=== PATIENT | female | born 1945 | race Caucasian/White ===

== ENCOUNTER 2020-08-09 10:05 | Emergency (ER) | payer MEDICARE, SELFPAY ==
[2020-08-09 10:18] VITALS: BP 143/64; PULSE 90; RESP 20; TEMP 36.6
--- NOTE | 2020-08-09 10:31 | ED.URI ---
HPI - URI/Sore Throat General Chief Complaint: Upper Respiratory Infection Stated Complaint: sore throat Time Seen by Provider: 08/09/20 10:15 Source: patient and RN notes reviewed Mode of arrival: ambulatory Limitations: no limitations History of Present Illness HPI Narrative: Patient presents today with a 1 month history of a sore throat. She also complains of some postnasal drip and nasal congestion as well as swelling to her throat. This morning she noted a painful spot on the right side of her tongue as well. States she is short of breath at baseline, but no worse than normal. Currently rates her sore throat 01/27 and has been taking ibuprofen without relief. She was seen by her PCP, Dr. Mcmanus, 10 days ago and was prescribed a course of azithromycin, which she took the full course of. States it did help with some of the soreness in her throat, but not the swelling. States she attempted to phone for follow up appointment, but was unable to get ahold of anyone, so she came to [facility] today for further evaluation. Related Data Home Medications Medication Instructions Recorded Confirmed lancets 17 gauge #100 each 08/15/19 07/30/20 latanoprost 0.005 % eye drops 1 drop EACH EYE QPM 08/15/19 08/09/20 metoclopramide HCl 10 mg tablet 10 mg PO Q6H PRN 08/15/19 08/09/20 timolol 0.25 % eye drops 1 drop EACH EYE Q12H 08/15/19 08/09/20 Allergies Allergy/AdvReac Type Severity Reaction Status Date / Time amoxicillin Allergy Unknown Rash Verified 07/30/20 14:21 minocycline Allergy Unknown unknown Verified 07/30/20 14:21 Review of Systems Review of Systems: Narrative: CONSTITUTIONAL: Denies body aches, fever, chills, or sweats. EYES: Denies visual changes, redness, or discharge. ENT: Denies rhinorrhea, or otalgia. + Sore throat and swelling, postnasal drip, nasal congestion, tongue sore CARDIOVASCULAR: Denies chest pain, palpitations, or edema. RESPIRATORY: Denies cough or dyspnea. GASTROINTESTINAL: Denies abdominal pain, nausea, vomiting, or diarrhea. GENITOURINARY: Denies dysuria or hematuria. SKIN: Denies rash, itching, or wounds. MUSCULOSKELETAL: Denies back pain, joint pain, or myalgia. NEUROLOGIC: Denies headache, numbness, tingling, or weakness. PSYCH: Denies depression or anxiety. [facility] Family History Family History (Updated 01/02/19 @ 15:17 by DOCTOR UNKNOWN) Other Depression Social History Social History Smoking status: Never smoker Second hand tobacco smoke exposure: No Alcohol intake: never Gender identity (if verbalized by the patient): Female Comments At time of signature, I have reviewed and agree with nursing past medical, surgical, social and family history unless otherwise noted. Please see nursing chart for further information. There is no relevant family history pertinent to the presenting complaint Exam Narrative: Exam Narrative: GENERAL: Well-appearing, well-nourished, and in no acute distress. HEAD: Normocephalic, atraumatic. EYES: EOMI. No redness or drainage. Conjunctivae normal. ENT: Mucous membranes pink and moist. Nares clear with rhinorrhea. TMs normal bilaterally. Throat with cobblestoning. Small amount of postnasal drainage. No edema noted. Tonsils normal. No exudate noted. 3 mm canker sore to the right lateral tongue. Uvula midline. NECK: Normal AROM. Supple. No lymphadenopathy. CHEST: No respiratory distress. Clear to auscultation. HEART: Regular rate and rhythm. No murmur appreciated. Normal peripheral pulses. EXTREMITIES: Normal range of motion. No edema. SKIN: Warm, dry, no rash. Capillary refill normal. Normal skin turgor. NEURO: No focal deficits. Alert and oriented x3. Gait steady. PSYCH: Normal affect. No signs of depression or anxiety. Course Vital Signs Vital signs: Vital Signs Temperature 97.9 F 08/09/20 10:18 Pulse Rate 90 08/09/20 10:18 Respiratory Rate 08/09/20 10:18 Blood Pressure 143/64 H 08/09/20 10:18
[2020-08-09 10:37] VITALS: BP 143/64; PULSE 90; RESP 20; TEMP 36.6
== END 2020-08-09 10:39 | disposition home or self-care (01) ==
PROVIDERS: Emergency Provider Nurse Practitioner; PCP Internal Medicine
DX: R09.82 Postnasal drip (principal); K12.0 Recurrent oral aphthae; E78.00 Pure hypercholesterolemia, unspecified; M19.90 Unspecified osteoarthritis, unspecified site; E11.43 Type 2 diabetes mellitus with diabetic autonomic (poly)neuropathy; K31.84 Gastroparesis; H35.30 Unspecified macular degeneration
CPT/HCPCS: 99211; G0463

== ENCOUNTER 2023-03-25 08:42 | Inpatient (IN) | payer MEDICARE, SELFPAY ==
[2023-03-25] VITALS (18 sets, daily range): BP systolic 111–162; BP diastolic 50–74; PULSE 1–104; RESP 16–27; TEMP 36.6–36.8; O2SAT 82–99; BMI 28.5
--- NOTE | ~2023-03-25 | XR_ITS ---
Left ankle Technique: AP, oblique, and lateral views were obtained. Clinical History: Pain Findings: No acute fracture or dislocation is seen. Osseous alignment is anatomic. Ankle mortise and other visualized joint spaces are preserved. Plantar calcaneal spur present. There is mild lateral so ft tissue swelling. Impression: No fracture or dislocation. Mild lateral soft tissue swelling. Reviewed, dictated and finalized at location . Impression: No fracture or dislocation. Mild lateral soft tissue swelling.
--- NOTE | ~2023-03-25 | MR_ITS ---
EXAMINATION: MR thoracic spine wo con DATE: 03/26/2023 11:51 INDICATION: T12 compression fracture. TECHNIQUE: Magnetic resonance imaging (MRI) of the thoracic spine was performed without intravenous c ontrast. COMPARISON: CT 03/25/2023 FINDINGS: There is 5 degrees levocurvature of upper thoracic spine. There is 2 mm anterolisthesis of T1 on T2 and T2 on T3. There are Schmorl's nodes at multiple levels. There is a compression fracture of T12 with less than 1/5 loss of height with edema-like marrow signal intensity. There is moderately decreased disc height at T11-T12. At T11-T12, the disc is bulging and has an annular fissure. There is multilevel facet joint osteoarthritis, severe at many levels. On the right, there is mild neural f oraminal stenosis at T1-T2, T2-T3, T3-T4, T4-T5, T5-T6, and T11-T12. On the left, there is mild neura l foraminal stenosis at T1-T2, T2-T3, T4-T5, T6-T7, T8-T9, and T11-T12. There is mild central canal s tenosis at T11-T12. The distal spinal cord signal intensity is normal. The conus medullaris is at T12 . IMPRESSION: 1. Acute/subacute T12 compression fracture. 2. Mild thoracic spondylosis. Reviewed, dictated and finalized at location A.
--- NOTE | ~2023-03-25 | CT_ITS ---
Noncontrast CT scan of the cervical spine Technique: Multiple contiguous axial [address] images of the cervical spine were obtained and rec onstructed in 2D sagittal and coronal planes on the acquisition scanner. Dose reduction technique was used on this scan by utilizing automated exposure control, adjustment of the mA and/or kV according to patient size. The dose-length product (DLP) was 508.95 mGy-cm. Clinical History: Pain Findings: No fractures or dislocations. There is mild straightening of normal cervical. There is sev ere degenerative disc narrowing with uncovertebral degenerative change at C4-C5, C5-C6, and C6-C7. At C2-C3, there is mild disc osteophyte complex and there is right facet arthropathy. Possible minima l right neural foraminal narrowing. No definite central canal stenosis, cord compression, or left jan ral foraminal narrowing. At C3-C4, there is left neural foraminal narrowing related to severe left facet arthropathy. Right ne ural foramen preserved. No definite canal stenosis or cord compression. At C4-C5, there is disc osteophyte complex with probable mild canal stenosis and possible mild cord c ompression. There is bilateral neural foraminal narrowing with bilateral facet arthropathy, right wor se than left. At C5-C6, there is disc osteophyte complex with probable mild to moderate canal stenosis and probable element of cord compression. There is advanced bilateral neural foraminal narrowing. At C6-C7, there is disc osteophyte complex with probable mild canal stenosis and possible mild cord c ompression. There is mild bilateral neural foraminal narrowing, left worse than right. No prevertebral soft tissue swelling. There is mild patchy groundglass opacity in the lungs. Impression: No fracture or subluxation of the cervical spine. Severe degenerative spondylosis of the cervical spine, as detailed above. Mild patchy pulmonary groundglass opacity. Correlate for mild pulmonary edema or bronchiolitis. Reviewed, dictated and finalized at [facility]. Impression: No fracture or subluxation of the cervical spine. Severe degenerative spondylosis of the cervical spine, as detailed above. Mild patchy pulmonary groundglass opacity. Correlate for mild pulmonary edema o r bronchiolitis.
--- NOTE | ~2023-03-25 | MR_ITS ---
EXAMINATION: MR lumbar spine wo con DATE: 03/26/2023 11:51 INDICATION: Back pain. Fall. T12 compression fracture. TECHNIQUE: Magnetic resonance imaging (MRI) of the lumbar spine was performed without intravenous con trast. Sequences included sagittal T2-weighted FSE, sagittal T2-weighted FS FSE, sagittal T1-weighted FSE, and axial T2-weighted FSE. COMPARISON: CT 03/25/2023 FINDINGS: There is 10 degrees levoscoliosis of lumbar spine. There is 5 mm retrolisthesis of L1 on L2 . There is a compression fracture of T12 with less than 1/5 loss of height with bone marrow edema. Th ere is severely decreased disc height at L1-L2, mildly decreased disc height at L2-L3, severely decre ased disc height at L3-L4, moderately decreased disc height at L4-L5, and mildly decreased disc heigh t at L5-S1. The distal spinal cord signal intensity is normal. The conus medullaris is at T12. The fo llowing disc levels are specifically discussed: L1-L2: The disc is bulging and has an annular fissure. There is severe right and moderate left facet joint osteoarthritis. There is moderate bilateral neural foraminal stenosis. There is mild central ca nal stenosis. L2-L3: The disc is bulging and has an annular fissure. There is severe bilateral facet joint osteoart hritis. There is moderate right and mild left neural foraminal stenosis. There is mild central canal stenosis. L3-L4: The disc is bulging and has an annular fissure. There is severe bilateral facet joint osteoart hritis. There is mild right and moderate left neural foraminal stenosis. There is mild central canal stenosis. L4-L5: The disc is bulging and has an annular fissure. There is moderate right and severe left facet joint osteoarthritis. There is mild bilateral neural foraminal stenosis. There is no central canal st enosis. L5-S1: The disc is bulging and has an annular fissure. There is moderate bilateral facet joint osteoa rthritis. There is moderate right neural foraminal stenosis. There is no central canal stenosis. IMPRESSION: 1. Acute/subacute T12 compression fracture. 2. Severe lumbar spondylosis. Reviewed, dictated and finalized at location A.
--- NOTE | ~2023-03-25 | US_ITS ---
EXAMINATION: US carotid duplex BI DATE: 03/25/2023 15:57 INDICATION: Syncope. TECHNIQUE: Grayscale, color Doppler, and pulsed Doppler images of the cervical carotid arteries were obtained. The degree of vessel stenosis is placed in one of the following categories: normal, <50%, 5 0-69%, >=70% but less than near-occlusion, near-occlusion, or total occlusion. Note that percent sten osis relative to normal distal artery lumen diameter is indirectly measured from velocity measurement s as described by Evgeny, et al. Radiology 2003; [id number]. COMPARISON: None. FINDINGS: RIGHT: The right common carotid artery (CCA) peak systolic velocity (PSV) is 76 cm/s. The right internal car otid artery (ICA) PSV is 131 cm/s. The right ICA end-diastolic velocity (EDV) is 36 cm/s. The right I CA/CCA PSV ratio is 1.7. Grayscale and color Doppler images yield an estimate of <50% diameter reduct ion from plaque in the ICA. There is antegrade flow in the right vertebral artery. LEFT: The left CCA PSV is 87 cm/s. The left ICA PSV is 153 cm/s. The left ICA EDV is 26 cm/s. The left ICA/ CCA PSV ratio is 1.8. Grayscale and color Doppler images yield an estimate of <50% diameter reduction from plaque in the ICA. There is antegrade flow in the left vertebral artery. IMPRESSION: 1. <50% stenosis in the right internal carotid artery. 2. <50% stenosis in the left internal carotid artery. Reviewed, dictated and finalized at location E.
--- NOTE | ~2023-03-25 | CT_ITS ---
EXAMINATION: CT thoracic spine wo con DATE: 03/25/2023 10:29 INDICATION: Back pain post fall TECHNIQUE: Computed tomography (CT) of the thoracic spine was performed without intravenous contrast. Automated exposure control and iterative reconstruction technique were employed. The dose-length pro duct was 1452.72 mGy-cm. COMPARISON: None FINDINGS: 8 degrees upper thoracic levocurvature. Sagittal alignment is normal. Linear lucent fractur e lines along the inferior endplate of T12 consistent with likely acute compression fracture with min imal anterior wedging. Remaining vertebral body heights are normal with no additional fractures ident ified. Remaining vertebral body heights are normal. There are bridging osteophytes extending from T3 through T12 consistent with diffuse idiopathic skeletal hyperostosis (DISH). Severe disc height loss at C5-C6, C6-C7 and L1-L2. Mild disc height loss at C7-T1 and T1-T2 and moderate disc height loss at the remaining thoracic levels. Thoracic disc height loss, moderate at T2-T3 through T10-T11 and mild at the remaining thoracic levels. Severe multilevel thoracic facet osteoarthritis with upper thoracic predominance. This contributes to mild neural foraminal stenosis at multiple levels on both the left and right again with upper thoracic predominance. Mild hypertrophic change associated with the facet osteoarthritis contributing to minimal central canal stenosis at a few levels throughout the thoraci c spine. Mild central canal stenosis associated with posterior disc osteophyte complexes at C5-C6, C6 -C7, T11-T12 and L1-L2. Mosaic attenuation in the lungs most likely related to expiratory phase of im aging. Calcified right upper lobe nodule, calcified right hilar and mediastinal lymph nodes and multi ple splenic calcifications consistent with old granulomatous disease. Atherosclerotic coronary artery calcification. No pericardial or pleural effusion. A few small nonobstructing left renal stones, the largest measuring up to 3-4 mm. IMPRESSION: 1. Acute compression fracture along the inferior endplate of T12 with minimal anterior vertebral body height loss. 2. Moderate thoracic spondylosis with bridging osteophytes from T3-T11 bladder consistent with diffus e idiopathic skeletal hyperostosis (DISH). 3. Severe lower cervical and upper lumbar spondylosis. Reviewed, dictated and finalized at location A. IMPRESSION: 1. Acute compression fracture along the inferior endplate of T12 with minimal a nterior vertebral body height loss. 2. Moderate thoracic spondylosis with bridging osteophytes from T3-T11 bladder consistent with diffuse idiopathic skeletal hyperostosis (DISH). 3. Severe lower cervical and upper lumbar spondylosis.
--- NOTE | ~2023-03-25 | CT_ITS ---
EXAMINATION: CT abd pelvis lumbar w con DATE: 03/25/2023 10:36 INDICATION: Fall. Abdominal pain. TECHNIQUE: Computed tomography (CT) of the abdomen and pelvis was performed with 100 CC Omnipaque 350 intravenous contrast. Automated exposure control and iterative reconstruction technique were employe d. Exam dose: 1110.57 mGy-cm total exam DLP. COMPARISON: 01/20/2019 CT abdomen pelvis FINDINGS: Patchy groundglass density of the lower lungs which may be due to atelectasis or small airw ays disease. There is discoid atelectasis or scarring at the lung bases. Cardiomegaly. Coronary artery calcifications. No pericardial effusion. The common bile duct measures up to approximately 10 mm, likely due to cholecystectomy. No hepatic sp daniel-occupying mass lesion. Occasional splenic cysts. No splenomegaly. No pancreatic mass lesion or ca lcification or ductal dilatation. Normal morphology of the adrenal glands. Subtle pinpoint nonobstructing lower pole probable right renal calculus. Approximate 4 nonobstructing left renal calculi are suggested. No left or right ureteral calculus or hydroureteronephrosis. Status post hysterectomy. The urinary bladder is unremarkable. Normal appendix. There is a suture line at the distal sigmoid colon. There is thickening of the wall of the transverse, descending and sigmoid colon. No bowel obstruction or intraperitoneal free air. There is atherosclerotic calcification but normal caliber of the abdominal aorta. There is calcificat ion at the origins of the celiac and superior mesenteric and both renal veins. No intraperitoneal or retroperitoneal or pelvic mass lesion or adenopathy or ascites is detected. Diffuse idiopathic skeletal hyperostosis of the thoracic spine. Multilevel degenerative disc disease of the lumbar spine, severe at L1-2, with associated retrolisthesis at this level. Status post left total hip arthroplasty. Right hip osteoarthritis. Prominent sclerosis at the right and to a lesser extent left sacroiliac joints. IMPRESSION: Abnormal thickening of the wall of the transverse, descending and sigmoid colon; conside r infectious, inflammatory or ischemic colitis Suture line of distal sigmoid colon Normal appendix Bilateral nonobstructive nephrolithiasis Status post cholecystectomy Status post hysterectomy Reviewed, dictated and finalized at [facility]. Reviewed, dictated and finalized at [facility]. IMPRESSION: Abnormal thickening of the wall of the transverse, descending and sigmoid colon; consider infectious, inflammatory or ischemic colitis Suture line of distal sigmoid colon Normal appendix Bilateral nonobstructive nephrolithiasis Status post cholecystectomy Status post hysterectomy
--- NOTE | ~2023-03-25 | CT_ITS ---
EXAMINATION: CT brain wo con DATE: 03/25/2023 10:28 INDICATION: Head injury TECHNIQUE: Computed tomography (CT) of the head was performed without intravenous contrast. Sagittal and coronal reconstructions were performed. The mA was adjusted according to patient size. Iterative reconstruction technique was employed. The dose-length product was 605.33 mGy-cm. COMPARISON: head CT dated 01/31/16 FINDINGS: No fracture. Hyperostosis and small left frontal osteoma along the periphery of the bone near the mid line of the forehead. No acute intracranial hemorrhage, acute infarction or abnormal extra axial flui d collection. There is mild scattered white matter hypoattenuation consistent with chronic small vess el ischemic disease. Ventricles are normal and symmetric. No mass/mass effect. Changes of bilateral intraocular lens replacement. The orbits and mastoid air cells are normal. Moderate mucosal thickenin g in/were mucus in the dependent bilateral maxillary and sphenoid sinuses. IMPRESSION: 1. No fracture or acute intracranial process. 2. Mild scattered white matter hypoattenuation consistent with chronic small vessel ischemic disease. Reviewed, dictated and finalized at [facility]. IMPRESSION: 1. No fracture or acute intracranial process. 2. Mild scattered white matter hypoattenuation consistent with chronic small ve ssel ischemic disease.
--- NOTE | 2023-03-25 08:55 | ECG_ITS ---
Measurements Intervals [place] Rate: 85 P: 105 [place]: 174 QRS: -38 QRSD: 111 T: 38 QT: 368 QTc: 439 Interpretive Statements SINUS RHYTHM WITH SINUS ARRHYTHMIA MARKED LEFT AXIS DEVIATION [QRS AXIS < -30] SEPTAL MYOCARDIAL INFARCTION , OF INDETERMINATE AGE [40+ ms Q WAVE IN V1/V2] NO PREVIOUS ECG AVAILABLE FOR COMPARISON Electronically Signed On 03-25-2023 14:26:25 CDT by Sabi Rain M.D.
[2023-03-25 09:34] LABS: Hematocrit 27.6 % (37.0-47.0); Hemoglobin 7.9 g/dL (12.0-15.0); Mean Corpuscular HGB Conc 28.6 g/dl (32-36); Mean Corpuscular Hemoglobin 27.2 pg (26-34); Mean Corpuscular Volume 95.2 fl (80-100); Mean Platelet Volume 8.8 fl (7.4-10.4); Platelet Count Result 326 k/mm3 (150-375)
[2023-03-25 09:40] LABS: Alanine Aminotransferase 105 U/L (6-35); Albumin Level 2.6 g/dL (3.5-5.1); Alkaline Phosphatase 124 U/L (38-126); Anion Gap 7 mmol/L (8-16); Aspartate Amino Transferase 136 U/L (14-36); Bilirubin,Total 0.4 mg/dL (0.2-1.3); Blood Urea Nitrogen 19 mg/dL (7-17); Carbon Dioxide 24 mmol/L (22-30); Chloride 103 mmol/L (98-107); Estimated CRCL calculation 49 ml/min; Estimated Glomerular Filt Rate > 60; Glucose 93 mg/dL (65-110); Potassium 3.2 mmol/L (3.4-5.0); Sodium 134 mmol/L (137-145)
[2023-03-25 09:52] LABS: Troponin I 0.015 ng/mL (0.000-0.034)
[2023-03-25] MEDS: ONDANSETRON INJ 4 MG/2 ML VIAL IV PUSH (09:56)
[2023-03-25] MEDS: SODIUM CHLORIDE 0.9% IV 1,000 ML 999 ML IV CONT (09:57)
[2023-03-25] MEDS: MORPHINE SULFATE (*CRX) 4 MG/ML INJ IV PUSH ×3 (09:58→20:03)
[2023-03-25 10:04] LABS: Magnesium 1.5 mg/dL (1.6-2.3)
[2023-03-25 10:07] LABS: Influenza A QL RT-PCR Negative (Negative); Influenza B QL RT-PCR Negative (Negative); SARS-CoV-2 RNA PCR Negative (Negative)
--- NOTE | 2023-03-25 10:17 | ED.FALL ---
HPI - Fall General Chief Complaint: Fall Stated Complaint: glf- back pain Time Seen by Provider: 03/25/23 08:58 History of Present Illness HPI Narrative: This is a 77-year-old female, past history of ulcerative colitis, diabetes and depression, who was brought in by EMS after a ground-level fall. The patient states she was walking from her bathroom, when she became lightheaded and fell backwards to the floor. After the fall, she complains of midline low back pain, rated 8/10, described as sharp and nonradiating, without weakness, numbness, loss of bowel or bladder control or fevers. Related Data Home Medications Medication Instructions Recorded Confirmed latanoprost 0.005 % eye drops 1 drop ophthalmic (eye) QPM 08/15/19 03/25/23 acetaminophen 325 mg tablet 650 mg PO ONCE PRN pain or headache 03/25/23 03/25/23 atorvastatin 20 mg tablet 20 mg PO DAILY 03/25/23 03/25/23 carteolol 1 % eye drops 1 drp DAILY 03/25/23 03/25/23 cholecalciferol (vitamin D3) 50 50 mcg PO DAILY 03/25/23 03/25/23 mcg (2,000 unit) tablet dicyclomine 20 mg tablet 20 mg PO BID 03/25/23 03/25/23 duloxetine 60 mg capsule,delayed 60 mg PO DAILY 03/25/23 03/25/23 release sprinkle ergocalciferol (vitamin D2) 1,250 1,250 mcg PO WEEKLY 03/25/23 03/25/23 mcg (50,000 unit) capsule hydrocodone 5 mg-acetaminophen 325 1 tablet PO Q6H PRN Pain 03/25/23 03/25/23 mg tablet metformin 500 mg tablet,extended 500 mg PO DAILY 03/25/23 03/25/23 release 24 hr ondansetron 4 mg disintegrating 4 mg PO Q8H PRN Nausea And Vomiting 03/25/23 03/25/23 tablet prednisone 10 mg tablet See Rx Instructions .Route .COMPLEX 03/25/23 Allergies Allergy/AdvReac Type Severity Reaction Status Date / Time amoxicillin Allergy Unknown Rash Verified 08/27/20 13:31 minocycline Allergy Unknown unknown Verified 08/27/20 13:31 Review of Systems Review of Systems: CONSTITUTIONAL: Denies fever, chills, or sweats. CARDIOVASCULAR: Denies chest pain, palpitations, or edema. RESPIRATORY: Denies cough or dyspnea. GASTROINTESTINAL: Denies abdominal pain, nausea, vomiting, or diarrhea. GENITOURINARY: Denies dysuria or hematuria. SKIN: Denies rash or itching. MUSCULOSKELETAL: Midline low back pain denies joint pain, or myalgia. NEUROLOGIC: Denies headache, numbness, dizziness, or weakness. PSYCHIATRIC: Denies anxiety or depression. [facility] Past Medical History Medical History (Updated 03/25/23 @ 14:57 by Patti Lang PA-C) Gastroparesis Generalized anxiety disorder Gout Hypertension Macular degeneration Mixed hyperlipidemia Type 2 diabetes mellitus Surgical History Surgical History (Updated 03/25/23 @ 15:02 by Patti Lang PA-C) History of cholecystectomy History of hysterectomy History of lumbar laminectomy Family History Family History (Updated 03/25/23 @ 14:30 by Patti Lang PA-C) Other Acute myocardial infarction Breast cancer Depression Hypertension Social History Social History (Updated 03/25/23 @ 14:30 by Patti Lang PA-C) Social History: Surrogate medical decision maker: Da Segundo, spouse. Code status: Full code. Smoking status: Never smoker Second hand tobacco smoke exposure: No Alcohol intake: never Substance use: never Lack of Transportation: No Lack of Food: Never True Current Housing: I Have Housing Concerned About Future Housing: No Difficulty Paying Gas/Electric Bills: No Difficulty Paying for Meds: No Currently Unemployed: No Education: High School Diploma/GED Difficulty w/ Childcare or Family Care: No Spiritual care concerns: No Exam Narrative: GENERAL: Well-developed, well-nourished, and in no acute distress. HEAD: Normocephalic, atraumatic. EYES: PERRLA and EOMI. ENT: Nares clear, no rhinorrhea or epistaxis. Mucous membranes moist. Oropharynx without tonsillar hypertrophy exudate or other lesions. NECK: Supple. No midline spine tenderness to palpation, no step-off
[2023-03-25 10:20] LABS: Band Neutrophils Percent 26 % (0-6); Eosinophils Absolute Manual 0.06 K/mm3 (0.02-0.5); Eosinophils Percent Manual 1 % (0-4); Lymphocytes Absolute Manual 3.06 K/mm3 (1.1-4.5); Metamyelocytes Percent 3 %; Neutrophils Percent Manual 19 % (46-73); Total Cells Counted 100
[2023-03-25 10:21] LABS: Anisocytosis 1+ (NORMAL); Hypochromasia 1+ (NORMAL); Platelet Estimate Increased (Adequate); Schistocytes None Seen (NORMAL)
[2023-03-25] MEDS: CALCIUM GLUC 1,000 MG/NS 50 ML 1,000 MG/50 ML BAG 100 MG IVPB (11:04)
[2023-03-25] MEDS: POTASSIUM CHLORIDE INJ 40 MEQ in SODIUM CHLORIDE 0.9% IV 500 ML 130 MEQ IVPB (11:05)
[2023-03-25 11:39] LABS: Add Urine Microscopic? YES; Appearance Urine Clear (Clear); Bacteria Urine None Seen /hpf; Bilirubin Urine Negative (Negative); Blood Urine Negative (Negative); Color Urine Yellow (Yellow); Glucose Urine UA Negative (Negative); Ketones Urine Negative (Negative); Leukocyte Esterase Ur Negative LEU/UL (Negative); Need Manual Microscopic Reviewed; Nitrate Urine Negative (Negative); Protein Urine Trace mg/dL (Negative); RBC Urine 0-2 /hpf (0-2); Specific Grav Ur 1.018 (1.001-1.035); Squamous Epithelial Cell Urine None seen /hpf (Few); Urobilinogen Urine 0.2 mg/dL (<2.0); WBC Urine 0-5 /hpf; pH Urine 5.5 (5.0-9.0)
--- NOTE | 2023-03-25 13:08 | PM.IMHP ---
H&P: HPI History of Present Illness Date/Time: 03/25/23 13:10 Chief Complaint: Back pain after fall. Narrative: This is a 77-year-old female with type 2 diabetes mellitus, hypertension, dyslipidemia, and ulcerative colitis who presented to the emergency department via EMS from home for evaluation of back pain after a fall. The patient provides the following history. She was hospitalized at [facility] approximately 1 month ago with diverticulitis and what sounds like GI bleed related to the same. She was treated with antibiotics and received 3 units of packed red blood cells for anemia. She also had a colonoscopy but does not really remember the results but she was treated with steroids. She continues to have loose stools occasionally admixed with mucus and small amounts of bright red blood. This morning she passed a large stool and after she felt weak and lightheaded. She had a near syncopal episode and fell onto her back on the carpeted floor. She does not believe that she lost consciousness and denies head trauma. She was unable to get up however due to severe pain in the mid to lower back and emergency services were summoned. In the ED: She was afebrile on arrival with stable vital signs. Labs were significant for a WBC count of 6.0, hemoglobin 7.9, sodium 134, potassium 3.2, BUN 19, creatinine 0.80, AST 136, ALT 105, total protein 6.0, albumin 2.6. Urine was pretty unremarkable. No acute findings were noted on CT of the head and neck. CT of the pelvis and lumbar spine showed abnormal thickening of the almonte of the transverse, descending, and sigmoid colon with a differential to include infectious, inflammatory, or ischemic colitis. Thoracic spine CT showed acute fracture along the inferior endplate of T12 with minimal anterior vertebral body height loss. She is being admitted in this setting for pain control, PT/OT, and further monitoring of anemia and abnormal CT scan of the colon. At the time my evaluation she feels fine as long as she is not moving. When she attempts to get up she reports sharp and shooting ?excruciating? pain in the mid to lower back without radiation. She denies saddle anesthesia, urinary retention, bowel incontinence, focal weakness, and paresthesias of the lower extremities. Review of Systems Review of Systems: Twelve systems were reviewed and are negative except for as per HPI. [facility] Past Medical History Medical History Gastroparesis Generalized anxiety disorder Gout Hypertension Macular degeneration Mixed hyperlipidemia Type 2 diabetes mellitus Surgical History Surgical History History of cholecystectomy History of hysterectomy History of lumbar laminectomy Family History Family History Other Acute myocardial infarction Breast cancer Depression Hypertension Social History Social History Social History: Surrogate medical decision maker: Da Segundo, spouse. Code status: Full code. Smoking status: Never smoker Second hand tobacco smoke exposure: No Alcohol intake: never Substance use: never Lack of Transportation: No Lack of Food: Never True Current Housing: I Have Housing Concerned About Future Housing: No Difficulty Paying Gas/Electric Bills: No Difficulty Paying for Meds: No Currently Unemployed: No Education: High School Diploma/GED Difficulty w/ Childcare or Family Care: No Spiritual care concerns: No Meds Home Medications and Allergies Home Medications Medication Instructions Recorded Confirmed Type latanoprost 0.005 % eye drops 1 drop ophthalmic (eye) QPM 08/15/19 03/25/23 History escitalopram oxalate 20 mg tablet 40 mg PO DAILY 90 days #180 tabs 10/13/20 03/25/23 Rx olmesartan 20 1 tablet PO DAILY 90 da
--- NOTE | 2023-03-25 13:09 | ADMGEN ---
This patient, Joe Segundo, was admitted to Medical Room 340-01. Patient/family oriented to hospital policies and general routines including ID bracelet, bed and alarms, visiting hours, pain management, procedures, bathroom and other care routines, personal items, smoking policy, room service/diet, and visiting hours. Information on how to activate the Rapid Response Team has been discussed. Patient/Family are encouraged to report perceived risks to care and to ask questions if they do not understand what they are told or what they should do.
--- NOTE | 2023-03-25 14:50 | PCOTNOTE ---
Attempted to see pt. for occupational therapy evaluation. Spoke with Hospitalist, Patti Lang, who requested waiting on therapy evaluation on this date, as she believes pt. needs more thorough workup and consultation for complexity of medical condition. Nursing aware. Following.
[2023-03-25] MEDS: MAGNESIUM SULF 2 GM/WATER 50ML 2 GM/50 ML BAG IVPB (15:49)
[2023-03-25 16:48] LABS: Hemoglobin 7.8 g/dL (12.0-15.0)
[2023-03-25 16:56] LABS: Lactic Acid Reflex 1.3 mmol/L (0.7-2.0)
[2023-03-25 16:58] LABS: Partial Thromboplastin Time 32.6 SECONDS (22.3-36.8)
[2023-03-25 17:08] LABS: Iron 45 ug/dL (37-170); Lactate Dehydrogenase 268 U/L (120-246)
[2023-03-25 17:16] LABS: INR 1.3; Prothrombin Time 16.4 Seconds (11.1-14.7)
[2023-03-25 17:18] LABS: Percent Iron Saturation 28 % (20-50)
[2023-03-25 17:21] LABS: Hemoglobin A1C 5.2 % (<5.7)
[2023-03-25 17:26] LABS: Procalcitonin 0.2 ng/mL
[2023-03-25 17:41] LABS: Hepatitis B Surface Antigen Negative (Negative)
[2023-03-25 17:46] LABS: HAV RESULT Negative (Negative); Hepatitis B Core IgM Result Negative (Negative)
[2023-03-25 17:58] LABS: Hepatitis C Virus Antibody Negative (Negative)
[2023-03-25 18:05] LABS: Glucose Point of Care 88 mg/dl (65-105)
[2023-03-25 19:37] LABS: Vitamin B12 > 1000.0 pg/mL (239-931)
[2023-03-25 21:15] LABS: Glucose Point of Care 103 mg/dl (65-105)
[2023-03-25 21:17] LABS: Folic Acid 6.6 ng/mL (2.76->20)
[2023-03-25 23:17] LABS: Hematocrit 26.8 % (37.0-47.0); Hemoglobin 7.7 g/dL (12.0-15.0)
[2023-03-25 23:26] LABS: Anion Gap 5 mmol/L (8-16); Blood Urea Nitrogen 16 mg/dL (7-17); Calcium 7.6 mg/dL (8.4-10.2); Carbon Dioxide 23 mmol/L (22-30); Chloride 104 mmol/L (98-107); Estimated CRCL calculation 49 ml/min; Estimated Glomerular Filt Rate > 60; Glucose 90 mg/dL (65-110); Potassium 3.5 mmol/L (3.4-5.0); Sodium 132 mmol/L (137-145)
[2023-03-26] VITALS (8 sets, daily range): BP systolic 117–145; BP diastolic 47–71; PULSE 92–104; RESP 16–18; TEMP 36.1–36.5; O2SAT 91–95
[2023-03-26 00:16] LABS: Acetaminophen < 10 ug/mL (10-30)
[2023-03-26] MEDS: MORPHINE SULFATE (*CRX) 4 MG/ML INJ 2 MG IV PUSH ×2 (04:28→09:32)
[2023-03-26 06:40] LABS: Hematocrit 27.5 % (37.0-47.0); Hemoglobin 7.9 g/dL (12.0-15.0); Mean Corpuscular HGB Conc 28.7 g/dl (32-36); Mean Corpuscular Hemoglobin 27.9 pg (26-34); Mean Corpuscular Volume 97.2 fl (80-100); Mean Platelet Volume 9.5 fl (7.4-10.4); Platelet Count Result 252 k/mm3 (150-375); Red Blood Count 2.83 M/mm3 (4.2-5.4); Red Cell Distribution Width 18.6 % (11.5-14.5); White Blood Count 6.8 K/mm3 (4.5-10.0)
[2023-03-26 06:51] LABS: Alanine Aminotransferase 87 U/L (6-35); Albumin Level 2.4 g/dL (3.5-5.1); Alkaline Phosphatase 131 U/L (38-126); Anion Gap 6 mmol/L (8-16); Aspartate Amino Transferase 70 U/L (14-36); Bilirubin,Total 0.6 mg/dL (0.2-1.3); Blood Urea Nitrogen 18 mg/dL (7-17); Calcium 7.7 mg/dL (8.4-10.2); Carbon Dioxide 23 mmol/L (22-30); Chloride 105 mmol/L (98-107); Estimated CRCL calculation 49 ml/min; Estimated Glomerular Filt Rate > 60; Glucose 89 mg/dL (65-110); Potassium 4.7 mmol/L (3.4-5.0); Sodium 134 mmol/L (137-145)
[2023-03-26 07:08] LABS: Band Neutrophils Percent 34 % (0-6); Monocytes Absolute Manual 0.13 K/mm3 (0.1-0.90); Monocytes Percent Manual 2 % (3-9); Neutrophils Absolute Manual 4.76 K/mm3 (1.7-7.2); Neutrophils Percent Manual 36 % (46-73); Total Cells Counted 100
[2023-03-26 07:09] LABS: Burr Cells 1+ (NORMAL); Hypochromasia 1+ (NORMAL); Ovalocytes 1+ (NORMAL); Platelet Estimate Adequate (Adequate); Schistocytes None Seen (NORMAL)
[2023-03-26 08:40] LABS: Glucose Point of Care 92 mg/dl (65-105)
[2023-03-26] MEDS: ESCITALOPRAM OXALATE 10 MG TABLET 40 MG PO (09:03)
[2023-03-26] MEDS: DULoxetine HCL 60 MG CAPSULE.DR PO (09:03)
[2023-03-26] MEDS: OLMESARTAN MEDOXOMIL 20 MG TABLET PO (09:03)
[2023-03-26] MEDS: CHOLECALCIFEROL 1,000 UNITS TABLET 2000 UNITS PO (09:03)
[2023-03-26] MEDS: ATORVASTATIN 20 MG TABLET PO (09:03)
--- NOTE | 2023-03-26 09:33 | PCOTNOTE ---
Attempted OT evaluation this date; no neurosurgery consult placed; spoke with RN agrees with holding off until pt. seen by neurosurgery.
--- NOTE | 2023-03-26 09:44 | P.PNIM_ITS ---
Progress Note: A&P Assessment and Plan (1) Syncope: Code(s): R55 - Syncope and collapse Status: Acute Assessment and Plan: Patient felt lightheaded and dizzy prior to falling in the bathroom this morning with possible syncope versus near-syncope. * Monitor orthostatic vital signs Q shift. * Initiate fall precautions; ambulate with assistance. * Monitor on telemetry to rule out dysrhythmia. * Carotid Doppler negative * Suspect vasovagal syncope * Echo 03/26 reads, ?1. Complete two-dimensional, color flow and Doppler transthoracic echocardiogram is performed. ? 2. Left ventricular chamber dimension is mildly enlarged. ? 3. Left ventricular systolic function is normal, estimated at 55-60%. ? 4. There is mildly increased left ventricular wall thickness. ? 5. The left ventricular diastolic function is grade I diastolic dysfunction. ? 6. The basal inferior wall is akinetic. ? 7. The apical inferior wall, mid inferior wall, basal inferoseptal, and mid inferoseptal are hypokinetic. ? 8. Left atrial chamber dimension is mildly enlarged. ? 9. There is mild aortic valve regurgitation. ? 10. There is mild mitral valve regurgitation. ? 11. There is mild tricuspid valve regurgitation. ? 12. Moderate pulmonary hypertension, estimated pulmonary arterial systolic pressure is 46 mmHg. (2) Anemia: Code(s): D64.9 - Anemia, unspecified Status: Acute Assessment and Plan: She has not had labs at this facility for nearly 3 years however hemoglobin at that time was 12, currently 7.9. She was recently hospitalized at [facility] as per HPI and received 3 units packed red blood cells. * Check iron studies, B12, and folate. * FE 45, TIBC 160, saturation 28%, Ferritin 557 * vitamin b12 >1000, folate 6.6 * Check stool for occult blood. * Trend H&H and transfuse if indicated. (3) Electrolyte abnormality: Code(s): E87.8 - Other disorders of electrolyte and fluid balance, not elsewhere classified Status: Acute Assessment and Plan: Several mild electrolyte abnormalities including a sodium of 134, potassium 3.2, calcium 8.0, magnesium 1.5. * Electrolytes will be made replete. * Repeat BMP this evening to ensure improvement. * Hold hydrochlorothiazide for now. (4) Elevated LFTs: Code(s): R79.89 - Other specified abnormal findings of blood chemistry Status: Acute Assessment and Plan: Abdominal exam is largely benign. CT scan without findings to correlate. She is status post cholecystectomy. * Check hepatitis panel and monitor for now. * On atorvastatin 20 mg daily which will be continued however would hold if LFTs continued to trend upwards. (5) Compression fracture of T12 vertebra: Qualifiers: Encounter type: initial encounter Qualified Code(s): S22.080A - Wedge compression fracture of T11-T12 vertebra, initial encounter for closed fracture Code(s): S22.080A - Wedge compression fracture of T11-T12 vertebra, initial encounter for closed fracture Status: Acute Assessment and Plan: CT shows acute compression fracture of T12 with minimal anterior vertebral body height loss. * Supportive care. * TLSO brace ordered * MRI thoracic and lumbar spine pending * Neurosurgery consult and rec's appreciated. * Analgesics available as needed. * PT/OT consulted. (6) Abnormal computed tomography of abdomen and pelvis: Code(s): R93.5 - Abnormal findings on diagnostic imaging of other abdominal regions, including retrop
--- NOTE | 2023-03-26 09:44 | PM.IMPN ---
Progress Note: A&P Assessment and Plan (1) Syncope: Code(s): R55 - Syncope and collapse Status: Acute Assessment and Plan: Patient felt lightheaded and dizzy prior to falling in the bathroom this morning with possible syncope versus near-syncope. Monitor orthostatic vital signs Q shift. Initiate fall precautions; ambulate with assistance. Monitor on telemetry to rule out dysrhythmia. Carotid Doppler negative Suspect vasovagal syncope Echo 03/26 reads, ?1. Complete two-dimensional, color flow and Doppler transthoracic echocardiogram is performed. ? 2. Left ventricular chamber dimension is mildly enlarged. ? 3. Left ventricular systolic function is normal, estimated at 55-60%. ? 4. There is mildly increased left ventricular wall thickness. ? 5. The left ventricular diastolic function is grade I diastolic dysfunction. ? 6. The basal inferior wall is akinetic. ? 7. The apical inferior wall, mid inferior wall, basal inferoseptal, and mid inferoseptal are hypokinetic. ? 8. Left atrial chamber dimension is mildly enlarged. ? 9. There is mild aortic valve regurgitation. ? 10. There is mild mitral valve regurgitation. ? 11. There is mild tricuspid valve regurgitation. ? 12. Moderate pulmonary hypertension, estimated pulmonary arterial systolic pressure is 46 mmHg. (2) Anemia: Code(s): D64.9 - Anemia, unspecified Status: Acute Assessment and Plan: She has not had labs at this facility for nearly 3 years however hemoglobin at that time was 12, currently 7.9. She was recently hospitalized at [facility] as per HPI and received 3 units packed red blood cells. Check iron studies, B12, and folate. FE 45, TIBC 160, saturation 28%, Ferritin 557 vitamin b12 >1000, folate 6.6 Check stool for occult blood. Trend H&H and transfuse if indicated. (3) Electrolyte abnormality: Code(s): E87.8 - Other disorders of electrolyte and fluid balance, not elsewhere classified Status: Acute Assessment and Plan: Several mild electrolyte abnormalities including a sodium of 134, potassium 3.2, calcium 8.0, magnesium 1.5. Electrolytes will be made replete. Repeat BMP this evening to ensure improvement. Hold hydrochlorothiazide for now. (4) Elevated LFTs: Code(s): R79.89 - Other specified abnormal findings of blood chemistry Status: Acute Assessment and Plan: Abdominal exam is largely benign. CT scan without findings to correlate. She is status post cholecystectomy. Check hepatitis panel and monitor for now. On atorvastatin 20 mg daily which will be continued however would hold if LFTs continued to trend upwards. (5) Compression fracture of T12 vertebra: Qualifiers: Encounter type: initial encounter Qualified Code(s): S22.080A - Wedge compression fracture of T11-T12 vertebra, initial encounter for closed fracture Code(s): S22.080A - Wedge compression fracture of T11-T12 vertebra, initial encounter for closed fracture Status: Acute Assessment and Plan: CT shows acute compression fracture of T12 with minimal anterior vertebral body height loss. Supportive care. TLSO brace ordered MRI thoracic and lumbar spine pending Neurosurgery consult and rec's appreciated. Analgesics available as needed. PT/OT consulted. (6) Abnormal computed tomography of abdomen and pelvis: Code(s): R93.5 - Abnormal findings on diagnostic imaging of other abdominal regions, including retroperitoneum Status: Acute Assessment and Plan: CT shows abnormal thickening of the wall of the transverse, descending, and sigmoid colon with considerations to include infectious, inflammatory, or ischemic colitis. She does have a history of ulcerative colitis and recent hospital admission for diverticulitis. Records requested from [facility] for review. Hold on initiating antibiotics at this time. Stool studi
[2023-03-26 10:21] LABS: Hematocrit 27.4 % (37.0-47.0)
--- NOTE | 2023-03-26 10:37 | PCPTNOTE ---
Awaiting TLSO brace and MRI of the spine. Will follow.
[2023-03-26 12:20] LABS: Glucose Point of Care 126 mg/dl (65-105)
[2023-03-26] MEDS: TOLNAFTATE 1% POWDER 45 GM BTL 1 APPLIC TOPICAL ×2 (14:07→20:58)
--- NOTE | 2023-03-26 14:21 | ECHO_ITS ---
Patient Info Name: Joe Segundo Age: 77 years : 1945 Gender: Female Ht: 64 in Wt: 166 lbs BSA: 1.87 m2 HR: 93 bpm BP: 145 / 71 mmHg Heart Rhythm: Sinus Rhythm Technical Quality: Fair Exam Date: 03/26/2023 8:15 AM Exam Location: [facility] Pulmonary Exam Room: 340 Patient Status: Inpatient Admit Date: 03/25/2023 Staff Ordering Physician: Patti Lang PA-C Chip Tuner: Lily Mcdonald RDCS Attending Provider: Augustus Jarquin MD Referring Physician: Rickey WHELAN; Exam Type: CA echo doppler color flow Study Info Indications - SYNHCOPE Complete two-dimensional, color flow and Doppler transthoracic echocardiogram is performed. Summary 1. Complete two-dimensional, color flow and Doppler transthoracic echocardiogram is performed. 2. Left ventricular chamber dimension is mildly enlarged. 3. Left ventricular systolic function is normal, estimated at 55-60%. 4. There is mildly increased left ventricular wall thickness. 5. The left ventricular diastolic function is grade I diastolic dysfunction. 6. The basal inferior wall is akinetic. 7. The apical inferior wall, mid inferior wall, basal inferoseptal, and mid inferoseptal are hypokinetic. 8. Left atrial chamber dimension is mildly enlarged. 9. There is mild aortic valve regurgitation. 10. There is mild mitral valve regurgitation. 11. There is mild tricuspid valve regurgitation. 12. Moderate pulmonary hypertension, estimated pulmonary arterial systolic pressure is 46 mmHg. Left Ventricle Left ventricular chamber dimension is mildly enlarged. Left ventricular systolic function is normal, estimated at 55-60%. There is mildly increased left ventricular wall thickness. The left ventricular diastolic function is grade I diastolic dysfunction. The basal inferior wall is akinetic. The apical inferior wall, mid inferior wall, basal inferoseptal, and mid inferoseptal are hypokinetic. All other almonte appear normal. Right Ventricle Right ventricular chamber dimension is normal. Right ventricular systolic function is normal. Left Atria Left atrial chamber dimension is mildly enlarged. Right Atria Right atrial chamber dimension is normal. Atrial Septum Intact interatrial septum visualized by color flow imaging. Aortic Valve The aortic valve is trileaflet. There is mild aortic valve sclerosis. There is no aortic valve stenosis. There is mild aortic valve regurgitation. Pulmonic Valve The pulmonic valve is normal. There is no pulmonic valve stenosis. There is trace pulmonic regurgitation. Mitral Valve The mitral valve has normal leaflets. There is no mitral valve stenosis. There is mild mitral valve regurgitation. Tricuspid Valve The tricuspid valve leaflets are normal. There is no significant tricuspid valve stenosis. There is mild tricuspid valve regurgitation. Moderate pulmonary hypertension, estimated pulmonary arterial systolic pressure is 46 mmHg. Pericardium/Pleural The pericardium appears normal. There is trivial pericardial effusion. Inferior Vena Cava Normal inferior vena cava with >50% collapse upon inspiration consistent with normal right atrial pressure, 10 mmHg. Aorta The aortic root size at the sinus of Valsalva is normal. Left Ventricular Outflow Tract Name Value Normal LVOT 2D LVOT Diameter
[2023-03-26] MEDS: HYDROcodone/acetaminophen (*CRX) 10-325 MG TABLET 1 TAB PO (14:29)
--- NOTE | 2023-03-26 15:15 | WPDNEUROSGCN ---
Assessment and Plan Assessment and plan (1) Compression fracture of T12 vertebra: Qualifiers: Encounter type: initial encounter Qualified Code(s): S22.080A - Wedge compression fracture of T11-T12 vertebra, initial encounter for closed fracture Code(s): S22.080A - Wedge compression fracture of T11-T12 vertebra, initial encounter for closed fracture Status: Acute Plan Ms. Segundo is a 77-year-old female with history of ulcerative colitis and DM who was found to have a T12 compression fracture after a fall yesterday. She has focal back pain without radiation of symptoms into the abdomen or legs. She is neurologically intact on physical exam. Imaging shows a vertical fracture through the T12 body without involvement of the posterior elements. I do not see evidence of ligamentous injury or any narrowing of the spinal canal at the level of the fracture. At this time, I believe this can be managed non-operatively with a brace. I have contacted [facility] to have her fitted for a TLSO brace. This should be worn when sitting > 30 degrees and when out of bed. She does not need the brace when flat in bed unless it is more comfortable for her to do so. She should follow up in clinic in about 6 weeks with AP/lateral thoracolumbar xrays immediately prior to that appointment. I would also consider adding a muscle relaxer to help with pain control. Plan: -She will be fit with a TLSO brace -She should be seen in our clinic in 6 weeks with AP/lateral thoracolumbar xrays prior to that appointment Consult date: 03/26/23 HPI: Joe Segundo is a 77 year old female with history of DM and ulcerative colitis who was admitted last night for management of back pain after a fall. She was walking from the bathroom to her living room at home when she became dizzy and fell backwards. She denies loss of consciousness. She has had back pain since that time without radiation of pain or paresthesias into the chest, abdomen, or legs. She reports generalized weakness in the legs but denies difficulty voiding. She has been able to get some relief with medication thus far. She denies any other injuries from her fall. Review of Systems Review of Systems: All systems reviewed & are unremarkable except as noted in HPI and below PMFSH Past Medical History Medical History (Updated 10/06/23 @ 14:57 by Patti Lang PA-C) Gastroparesis Generalized anxiety disorder Gout Hypertension Macular degeneration Mixed hyperlipidemia Type 2 diabetes mellitus Surgical History Surgical History (Updated 03/25/23 @ 15:02 by Patti Lang PA-C) History of cholecystectomy History of hysterectomy History of lumbar laminectomy Family History Family History (Updated 03/25/23 @ 14:30 by Patti Lang PA-C) Other Acute myocardial infarction Breast cancer Depression Hypertension Social History Social History (Updated 03/25/23 @ 14:30 by Patti Lang PA-C) Social History: Surrogate medical decision maker: Da Segundo, spouse. Code status: Full code. Smoking status: Never smoker Second hand tobacco smoke exposure: No Alcohol intake: never Substance use: never Lack of Transportation: No Lack of Food: Never True Current Housing: I Have Housing Concerned About Future Housing: No Difficulty Paying Gas/Electric Bills: No Difficulty Paying for Meds: No Currently Unemployed: No Education: High School Diploma/GED Difficulty w/ Childcare or Family Care: No Spiritual care concerns: No Meds Home Medications and Allergies Home Medications Medication Instructions Recorded Confirmed Type latanoprost 0.005 % eye drops 1 drop ophthalmic (eye) QPM 08/15/19 03/25/23 History escitalopram oxalate 20 mg tablet 40 mg PO DAILY 90 days #180 tabs 10/13/20 03/25/23 Rx olmesartan 20 1 tablet PO DAILY 90 days #90 tabs 10/13/20 03/25/23 Rx mg-hydrochlorothiazide 12.5 mg tablet acetaminophen 325 mg
[2023-03-26 17:13] LABS: Glucose Point of Care 131 mg/dl (65-105)
[2023-03-26] MEDS: LATANOPROST 0.005% OP SOLN 2.5 ML BTL 1 DROP EACH EYE (20:57)
[2023-03-27] VITALS (14 sets, daily range): BP systolic 92–146; BP diastolic 56–62; PULSE 80–117; RESP 18–24; TEMP 36–36.6; O2SAT 90–96
[2023-03-27 03:35] LABS: Glucose Point of Care 187 mg/dl (65-105)
[2023-03-27] MEDS: HYDROcodone/acetaminophen (*CRX) 10-325 MG TABLET 1 TAB PO ×3 (04:26→23:12)
[2023-03-27 06:16] LABS: Hematocrit 25.6 % (37.0-47.0); Hemoglobin 7.5 g/dL (12.0-15.0); Mean Corpuscular HGB Conc 29.3 g/dl (32-36); Mean Corpuscular Hemoglobin 27.5 pg (26-34); Mean Corpuscular Volume 93.8 fl (80-100); Mean Platelet Volume 8.8 fl (7.4-10.4); Platelet Count Result 309 k/mm3 (150-375); Red Blood Count 2.73 M/mm3 (4.2-5.4); Red Cell Distribution Width 18.4 % (11.5-14.5)
[2023-03-27 06:30] LABS: Alanine Aminotransferase 62 U/L (6-35); Albumin Level 2.4 g/dL (3.5-5.1); Alkaline Phosphatase 125 U/L (38-126); Anion Gap 3 mmol/L (8-16); Aspartate Amino Transferase 36 U/L (14-36); Bilirubin,Total 0.4 mg/dL (0.2-1.3); Blood Urea Nitrogen 20 mg/dL (7-17); Calcium 7.8 mg/dL (8.4-10.2); Carbon Dioxide 25 mmol/L (22-30); Chloride 103 mmol/L (98-107); Estimated CRCL calculation 49 ml/min; Estimated Glomerular Filt Rate > 60; Glucose 132 mg/dL (65-110); Magnesium 1.9 mg/dL (1.6-2.3); Potassium 3.3 mmol/L (3.4-5.0); Sodium 131 mmol/L (137-145)
[2023-03-27 07:07] LABS: Band Neutrophils Percent 47 % (0-6); Lymphocytes Absolute Manual 1.98 K/mm3 (1.1-4.5); Monocytes Absolute Manual 0.12 K/mm3 (0.1-0.90); Monocytes Percent Manual 2 % (3-9); Neutrophils Percent Manual 18 % (46-73); Total Cells Counted 100
[2023-03-27 07:08] LABS: Platelet Estimate Adequate (Adequate); Schistocytes None Seen (NORMAL)
[2023-03-27 07:09] LABS: Anisocytosis 1+ (NORMAL); Burr Cells 1+ (NORMAL); Hypochromasia 1+ (NORMAL)
--- NOTE | 2023-03-27 07:26 | WPDGICN ---
Assessment and Plan Assessment and plan (1) Abnormal computed tomography of abdomen and pelvis: Code(s): R93.5 - Abnormal findings on diagnostic imaging of other abdominal regions, including retroperitoneum Status: Acute Assessment and Plan: CT scan shows inflammatory changes in the transverse descending and sigmoid colon. She actually had her sigmoid colon resected about 4 years ago because of diverticulitis. When she was hospitalized last month she was told that she had colitis. At that time she was bleeding quite a bit. She was sent home on tapering dose of steroids but nothing else after that. She thinks she was told once we for a few years ago that she had ulcerative colitis but cannot be certain of that. (2) Elevated LFTs: Code(s): R79.89 - Other specified abnormal findings of blood chemistry Status: Acute Assessment and Plan: She has no history of liver disease jaundice hepatitis. ALT was normal a few years ago. He is now elevated at 10:53 a.m. days ago and coming down, 62 today. (3) Anemia: Code(s): D64.9 - Anemia, unspecified Status: Acute Assessment and Plan: She states that she required 3 units of blood during her last hospitalization. Her hemoglobin was 7.8 on admission and is virtually unchanged, 7.5 today. (4) Compression fracture of T12 vertebra: Qualifiers: Encounter type: initial encounter Qualified Code(s): S22.080A - Wedge compression fracture of T11-T12 vertebra, initial encounter for closed fracture Code(s): S22.080A - Wedge compression fracture of T11-T12 vertebra, initial encounter for closed fracture Status: Acute Plan We will obtain the records if possible of her recent colonoscopy at [facility]. Will check fecal calprotectin level and obtain serology for inflammatory bowel disease. I told her that she may require some long-term oral medication for colitis if that is what this is. GI Consult Note Consult date/time: 03/27/23 07:26 HPI: Joe Segundo is a 77 year old female was admitted to the emergency room after she had fallen injuring her lower back. X-rays were done of her pelvis and spine revealing an acute compression fracture at T12. It was also noted the however that she had abnormal thickening of the wall the transverse descending and sigmoid colon. She had been hospitalized last month in [facility] because of diarrhea and bleeding that had been going on for couple of weeks. There she underwent colonoscopy was told that she had colitis. She thinks she was sent home on a tapering dose of steroids for 7 days. She is also taking dicyclomine. She was told that she had ulcerative colitis but does not seem to be on any maintenance medication for that. She had a colonoscopy here about 7 years ago revealing diverticulosis. In 2019 she apparently had ruptured diverticulitis requiring a temporary colostomy. She then had takedown of the colostomy and resection of much of the sigmoid colon. She states her stools have always been on the loose side which in fact they are today but she has not seen blood in her stools. She is not having any abdominal pain. She denies nausea or vomiting Review of Systems Review of Systems: All systems reviewed & are unremarkable except as noted in HPI and below PMFSH Past Medical History Medical History Gastroparesis Generalized anxiety disorder Gout Hypertension Macular degeneration Mixed hyperlipidemia Type 2 diabetes mellitus Surgical History Surgical History History of cholecystectomy History of hysterectomy History of lumbar laminectomy Family History Family History Other Acute myocardial infarction Breast cancer Depression Hypertension Social History Social History
--- NOTE | 2023-03-27 08:33 | PCPTNOTE ---
Attempted PT evaluation. TLSO brace not present at this time. RN aware. Will follow.
[2023-03-27 08:50] LABS: Glucose Point of Care 102 mg/dl (65-105)
[2023-03-27] MEDS: CHOLECALCIFEROL 1,000 UNITS TABLET 2000 UNITS PO (09:04)
[2023-03-27] MEDS: ATORVASTATIN 20 MG TABLET PO (09:04)
[2023-03-27] MEDS: DULoxetine HCL 60 MG CAPSULE.DR PO (09:04)
[2023-03-27] MEDS: OLMESARTAN MEDOXOMIL 20 MG TABLET PO (09:04)
[2023-03-27] MEDS: ESCITALOPRAM OXALATE 10 MG TABLET 40 MG PO (09:04)
[2023-03-27] MEDS: TOLNAFTATE 1% POWDER 45 GM BTL 1 APPLIC TOPICAL ×2 (09:05→21:00)
--- NOTE | 2023-03-27 09:06 | P.PNIM_ITS ---
Progress Note: A&P Assessment and Plan (1) Syncope: Code(s): R55 - Syncope and collapse Status: Acute Assessment and Plan: Patient felt lightheaded and dizzy prior to falling in the bathroom this morning with possible syncope versus near-syncope. * Monitor orthostatic vital signs Q shift. * Initiate fall precautions; ambulate with assistance. * Monitor on telemetry to rule out dysrhythmia. * Carotid Doppler negative * Suspect vasovagal syncope * Echo 03/26 reads, ?1. Complete two-dimensional, color flow and Doppler transthoracic echocardiogram is performed. ? 2. Left ventricular chamber dimension is mildly enlarged. ? 3. Left ventricular systolic function is normal, estimated at 55-60%. ? 4. There is mildly increased left ventricular wall thickness. ? 5. The left ventricular diastolic function is grade I diastolic dysfunction. ? 6. The basal inferior wall is akinetic. ? 7. The apical inferior wall, mid inferior wall, basal inferoseptal, and mid inferoseptal are hypokinetic. ? 8. Left atrial chamber dimension is mildly enlarged. ? 9. There is mild aortic valve regurgitation. ? 10. There is mild mitral valve regurgitation. ? 11. There is mild tricuspid valve regurgitation. ? 12. Moderate pulmonary hypertension, estimated pulmonary arterial systolic pressure is 46 mmHg. (2) Anemia: Code(s): D64.9 - Anemia, unspecified Status: Acute Assessment and Plan: She has not had labs at this facility for nearly 3 years however hemoglobin at that time was 12, currently 7.9. She was recently hospitalized at [facility] as per HPI and received 3 units packed red blood cells. * Check iron studies, B12, and folate. * FE 45, TIBC 160, saturation 28%, Ferritin 557 * vitamin b12 >1000, folate 6.6 * Check stool for occult blood. * Trend H&H and transfuse if indicated. (3) Electrolyte abnormality: Code(s): E87.8 - Other disorders of electrolyte and fluid balance, not elsewhere classified Status: Acute Assessment and Plan: Several mild electrolyte abnormalities including a sodium of 134, potassium 3.2, calcium 8.0, magnesium 1.5. * Electrolytes will be made replete. * Repeat BMP this evening to ensure improvement. * Hold hydrochlorothiazide for now. (4) Elevated LFTs: Code(s): R79.89 - Other specified abnormal findings of blood chemistry Status: Acute Assessment and Plan: Abdominal exam is largely benign. CT scan without findings to correlate. She is status post cholecystectomy. * Check hepatitis panel and monitor for now. * On atorvastatin 20 mg daily which will be continued however would hold if LFTs continued to trend upwards. (5) Compression fracture of T12 vertebra: Qualifiers: Encounter type: initial encounter Qualified Code(s): S22.080A - Wedge compression fracture of T11-T12 vertebra, initial encounter for closed fracture Code(s): S22.080A - Wedge compression fracture of T11-T12 vertebra, initial encounter for closed fracture Status: Acute Assessment and Plan: CT shows acute compression fracture of T12 with minimal anterior vertebral body height loss. * Supportive care. * TLSO brace ordered * MRI thoracic and lumbar spine pending * Analgesics available as needed. * PT/OT consulted * Neurosurgery consult and rec's appreciated. Listed as followed, * Non-operative management wtih brace. [facility] has been contacted to fit her for a TLSO. Brace should be worn when sitting > 30 degrees and when out of bed. Brace do
--- NOTE | 2023-03-27 09:06 | PM.IMPN ---
Progress Note: A&P Assessment and Plan (1) Syncope: Code(s): R55 - Syncope and collapse Status: Acute Assessment and Plan: Patient felt lightheaded and dizzy prior to falling in the bathroom this morning with possible syncope versus near-syncope. Monitor orthostatic vital signs Q shift. Initiate fall precautions; ambulate with assistance. Monitor on telemetry to rule out dysrhythmia. Carotid Doppler negative Suspect vasovagal syncope Echo 03/26 reads, ?1. Complete two-dimensional, color flow and Doppler transthoracic echocardiogram is performed. ? 2. Left ventricular chamber dimension is mildly enlarged. ? 3. Left ventricular systolic function is normal, estimated at 55-60%. ? 4. There is mildly increased left ventricular wall thickness. ? 5. The left ventricular diastolic function is grade I diastolic dysfunction. ? 6. The basal inferior wall is akinetic. ? 7. The apical inferior wall, mid inferior wall, basal inferoseptal, and mid inferoseptal are hypokinetic. ? 8. Left atrial chamber dimension is mildly enlarged. ? 9. There is mild aortic valve regurgitation. ? 10. There is mild mitral valve regurgitation. ? 11. There is mild tricuspid valve regurgitation. ? 12. Moderate pulmonary hypertension, estimated pulmonary arterial systolic pressure is 46 mmHg. (2) Anemia: Code(s): D64.9 - Anemia, unspecified Status: Acute Assessment and Plan: She has not had labs at this facility for nearly 3 years however hemoglobin at that time was 12, currently 7.9. She was recently hospitalized at [facility] as per HPI and received 3 units packed red blood cells. Check iron studies, B12, and folate. FE 45, TIBC 160, saturation 28%, Ferritin 557 vitamin b12 >1000, folate 6.6 Check stool for occult blood. Trend H&H and transfuse if indicated. (3) Electrolyte abnormality: Code(s): E87.8 - Other disorders of electrolyte and fluid balance, not elsewhere classified Status: Acute Assessment and Plan: Several mild electrolyte abnormalities including a sodium of 134, potassium 3.2, calcium 8.0, magnesium 1.5. Electrolytes will be made replete. Repeat BMP this evening to ensure improvement. Hold hydrochlorothiazide for now. (4) Elevated LFTs: Code(s): R79.89 - Other specified abnormal findings of blood chemistry Status: Acute Assessment and Plan: Abdominal exam is largely benign. CT scan without findings to correlate. She is status post cholecystectomy. Check hepatitis panel and monitor for now. On atorvastatin 20 mg daily which will be continued however would hold if LFTs continued to trend upwards. (5) Compression fracture of T12 vertebra: Qualifiers: Encounter type: initial encounter Qualified Code(s): S22.080A - Wedge compression fracture of T11-T12 vertebra, initial encounter for closed fracture Code(s): S22.080A - Wedge compression fracture of T11-T12 vertebra, initial encounter for closed fracture Status: Acute Assessment and Plan: CT shows acute compression fracture of T12 with minimal anterior vertebral body height loss. Supportive care. TLSO brace ordered MRI thoracic and lumbar spine pending Analgesics available as needed. PT/OT consulted Neurosurgery consult and rec's appreciated. Listed as followed, Non-operative management wtih brace. [facility] has been contacted to fit her for a TLSO. Brace should be worn when sitting > 30 degrees and when out of bed. Brace does not need to be worn when flat unless it is more comfortable. Follow up in neurosurgery clinic in 6 weeks with AP/lateral thoracolumbar X-rays prior to that appointment. (6) Abnormal computed tomography of abdomen and pelvis: Code(s): R93.5 - Abnormal findings on diagnostic imaging of other abdominal regions, including retroperitoneum Status: Acute Assessment and Plan: CT shows abnorma
[2023-03-27] MEDS: CYCLOBENZAPRINE HCL 5 MG TABLET PO ×3 (10:02→21:00)
--- NOTE | 2023-03-27 11:35 | PCOTNOTE ---
Attempted OT evaluation; waiting on TLSO brace. Will continue to follow
[2023-03-27 12:13] LABS: Glucose Point of Care 192 mg/dl (65-105)
--- NOTE | 2023-03-27 13:05 | PM.CNCAR ---
Assessment and Plan Assessment and plan (1) Pre-syncope: Code(s): R55 - Syncope and collapse Status: Acute Assessment and Plan: Probably orthostatic or vasovagal related presyncope. 03/26/23 Echo: EF 55-60%, mild LVH, grade I diastolic dysfunction, basal inferior wall is akinetic and mid to apical inferior wall are hypokinetic; basal to mid inferoseptal almonte are hypokinetic; mild LAE, mild AI/AR/TR, RVSP 46 mmHg. She had negative nuclear stress test at [facility] this past summer, per patient. Advise to maintain hydration and to get up slowly to avoid passing out. Discuss results of echo that with negative nuclear stress test and segmental wall motion abnormality on echo but normal overall EF, no further cardiac workup is needed at this time. She may f/u with me in 2 weeks upon discharge. (2) Hypertension: Code(s): I10 - Essential (primary) hypertension Status: Acute Assessment and Plan: Stable. (3) Mixed hyperlipidemia: Code(s): E78.2 - Mixed hyperlipidemia Status: Chronic Assessment and Plan: On Atorvastatin. (4) Type 2 diabetes mellitus: Code(s): E11.9 - Type 2 diabetes mellitus without complications Status: Acute Assessment and Plan: Managed as per hospitalist. History of Present Illness History of Present Illness Consult date/time: 03/27/23 13:05 Reason For Visit: T12 Fracture/Syncope/Hypokalemia Narrative: 77 yr old woman admitted after a fall. She has a history of DM, hypertension, dyslipidemia, UC. Reports that she got up got unsteady and dizzy, and fell back injuring her back. She did not completely pass out. Reports she has fallen before, usually forward not backwards. She is limited at walking 20 feet due to fatigue/[place]. Denies chest pain, sob, orthopnea, PND, palpitations. Review of Systems Review of Systems: All systems reviewed & are unremarkable except as noted in HPI and below Constitutional: Constitutional: Reports as per HPI, Denies chills, Reports fatigue and Denies fever(s) Cardiovascular: Cardiovascular: Reports as per HPI, Denies chest pain, Denies irregular heart rhythm, Reports leg edema and Reports lightheadedness Respiratory: Respiratory: Reports as per HPI and Reports dyspnea on exertion Gastrointestinal: Gastrointestinal: Reports as per HPI and Denies abdominal pain Genitourinary: Genitourinary: Reports as per HPI and Denies dysuria Musculoskeletal: Musculoskeletal: Reports as per HPI and Reports back pain Neurologic: Reports as per HPI, Reports dizziness and Denies syncope [facility] Past Medical History Medical History Gastroparesis Generalized anxiety disorder Gout Hypertension Macular degeneration Mixed hyperlipidemia Type 2 diabetes mellitus Surgical History Surgical History History of cholecystectomy History of hysterectomy History of lumbar laminectomy Family History Family History Other Acute myocardial infarction Breast cancer Depression Hypertension Social History Social History Social History: Surrogate medical decision maker: Da Segundo, spouse. Code status: Full code. Smoking status: Never smoker Second hand tobacco smoke exposure: No Alcohol intake: never Substance use: never Lack of Transportation: No Lack of Food: Never True Current Housing: I Have Housing Concerned About Future Housing: No Difficulty Paying Gas/Electric Bills: No Difficulty Paying for Meds: No Currently Unemployed: No Education: High School Diploma/GED Difficulty w/ Childcare or Family Care: No Spiritual care concerns: No Meds Home Medications and Allergies Home Medications Medication Instructions Recorded Confirmed Type latanoprost 0.
[2023-03-27] MEDS: predniSONE 5 MG TABLET 15 MG PO (14:00)
[2023-03-27] MEDS: POTASSIUM CHLORIDE 20 MEQ ER TABLET 40 MEQ PO (14:00)
[2023-03-27 17:26] LABS: Glucose Point of Care 153 mg/dl (65-105)
[2023-03-27] MEDS: LATANOPROST 0.005% OP SOLN 2.5 ML BTL 1 DROP EACH EYE (17:42)
[2023-03-27 18:40] LABS: IFOB Positive Control Positive; Immunochemical Fecal Occult Bl Positive (N)
[2023-03-27] MEDS: INSULIN ASPART (*BKC) 100 UNITS/ML SUB-Q (20:41)
[2023-03-27 22:02] LABS: Glucose Point of Care 215 mg/dl (65-105)
[2023-03-28] VITALS (13 sets, daily range): BP systolic 121–145; BP diastolic 52–89; PULSE 73–129; RESP 16; TEMP 36.4–36.9; O2SAT 92–95
[2023-03-28] MEDS: CYCLOBENZAPRINE HCL 5 MG TABLET PO ×3 (06:08→20:21)
[2023-03-28 06:30] LABS: Hemoglobin 7.7 g/dL (12.0-15.0); Mean Corpuscular HGB Conc 26.6 g/dl (32-36); Mean Corpuscular Hemoglobin 28.2 pg (26-34); Mean Corpuscular Volume 106.2 fl (80-100); Platelet Count Result 207 k/mm3 (150-375); Red Blood Count 2.73 M/mm3 (4.2-5.4); Red Cell Distribution Width 18.5 % (11.5-14.5); White Blood Count 5.7 K/mm3 (4.5-10.0)
[2023-03-28 06:41] LABS: Alanine Aminotransferase 58 U/L (6-35); Albumin Level 2.4 g/dL (3.5-5.1); Alkaline Phosphatase 121 U/L (38-126); Anion Gap 4 mmol/L (8-16); Aspartate Amino Transferase 52 U/L (14-36); Bilirubin,Total 0.5 mg/dL (0.2-1.3); Blood Urea Nitrogen 16 mg/dL (7-17); Calcium 7.6 mg/dL (8.4-10.2); Carbon Dioxide 22 mmol/L (22-30); Chloride 105 mmol/L (98-107); Estimated CRCL calculation 55 ml/min; Estimated Glomerular Filt Rate > 60; Glucose 123 mg/dL (65-110); Potassium 4.3 mmol/L (3.4-5.0); Sodium 131 mmol/L (137-145)
[2023-03-28 08:00] LABS: Anisocytosis 2+ (NORMAL); Band Neutrophils Percent 5 % (0-6); Hypochromasia 1+ (NORMAL); Lymphocytes Absolute Manual 2.73 K/mm3 (1.1-4.5); Metamyelocytes Percent 1 %; Monocytes Absolute Manual 0.11 K/mm3 (0.1-0.90); Monocytes Percent Manual 2 % (3-9); Neutrophils Absolute Manual 2.79 K/mm3 (1.7-7.2); Neutrophils Percent Manual 44 % (46-73); Platelet Estimate Adequate (Adequate); Schistocytes None Seen (NORMAL); Total Cells Counted 100
--- NOTE | 2023-03-28 08:08 | PM.PNCARD ---
Progress Note: A&P Assessment and Plan (1) Pre-syncope: Code(s): R55 - Syncope and collapse Status: Acute Assessment and Plan: Probably orthostatic or vasovagal related presyncope. 03/26/23 Echo: EF 55-60%, mild LVH, grade I diastolic dysfunction, basal inferior wall is akinetic and mid to apical inferior wall are hypokinetic; basal to mid inferoseptal almonte are hypokinetic; mild LAE, mild AI/CO/TR, RVSP 46 mmHg. She had negative nuclear stress test at [facility] this past summer, per patient. Advise to maintain hydration and to get up slowly to avoid passing out. Discuss results of echo that with negative nuclear stress test and segmental wall motion abnormality on echo but normal overall EF, no further cardiac workup is needed at this time. Due to persistent orthostasis, start Florinef 0.1 mg daily. She may f/u with me in 2 weeks upon discharge. (2) Hypertension: Code(s): I10 - Essential (primary) hypertension Status: Acute Assessment and Plan: Stable. (3) Mixed hyperlipidemia: Code(s): E78.2 - Mixed hyperlipidemia Status: Chronic Assessment and Plan: On Atorvastatin. (4) Type 2 diabetes mellitus: Code(s): E11.9 - Type 2 diabetes mellitus without complications Status: Acute Assessment and Plan: Managed as per hospitalist. Subjective Date/time seen: 03/28/23 08:08 Interval history: Denies chest pain or sob. No dizziness while lying down. Exam Const: General: cooperative, healthy appearing and comfortable Orientation/consciousness: oriented to person, oriented to place and oriented to time Resp: Auscultation: clear to auscultation bilaterally, no crackles, no rales, no rhonchi and no wheezes Cardio: Rate: regular rate Rhythm: regular rhythm Heart sounds: no murmurs Peripheral pulses: dorsalis pedis present Neuro: General: oriented to person, oriented to place and oriented to time Extrem: Right lower extremity: no edema Left lower extremity: no edema Objective Data Vital Signs Vital Signs: Vital Signs - 24 hr 03/27/23 09:06 03/27/23 12:05 03/27/23 13:22 Temperature 96.8 F L Pulse Rate 98 95 Respiratory Rate 18 Blood Pressure 128/57 L Pulse Oximetry 96 Oxygen Delivery Room Air 03/27/23 13:23 03/27/23 13:25 03/27/23 13:26 Temperature 96.8 F L 96.8 F L 96.8 F L Pulse Rate 91 107 H 117 H Respiratory Rate 18 18 24 H Blood Pressure 128/57 L 92/62 L Pulse Oximetry 96 95 90 Oxygen Delivery 03/27/23 15:03 03/27/23 16:04 03/27/23 18:05 Temperature Pulse Rate 90 97 Respiratory Rate Blood Pressure 113/56 L Pulse Oximetry Oxygen Delivery 03/27/23 20:31 03/27/23 20:00 03/28/23 00:00 Temperature 97.8 F Pulse Rate 89 98 74 Respiratory Rate 18 Blood Pressure 133/60 Pulse Oximetry 95 Oxygen Delivery 03/28/23 04:00 03/28/23 06:10 03/28/23 06:14 Temperature 97.5 F L Pulse Rate 77 73 Respiratory Rate 16 Blood Pressure 145/89 H 140/77 Pulse Oximetry 95 Oxygen Delivery 03/28/23 06:16 Temperature Pulse Rate Respiratory Rate Blood Pressure 121/59 L Pulse Oximetry Oxygen Delivery Intake/Output Intake/Output: Intake & Output 03/25/23 03/26/23 03/27/23 03/28/23 23:59 23:59 23:59 23:59 Intake Total 1790 1160 600 150 Output Total 200 500 300 Balance 1790 960 100 -150 Meds/Results Medications: Active Medications Generic Name Dose Route Start Last Admin Trade Name Freq PRN Reason Stop Dose Admin Acetaminophen 650 mg 03/25/23 20:43 Acetaminophen 325 Mg Tablet PO ONCE PRN pain or headache Hydrocodone Bitart/Acetaminophen 1 tab 03/25/23 20:43 Hydrocodone/Acetaminophen (*Crx) 5-325 Mg Tablet PO Q6H PRN PAIN RATED 4-6 Hydrocodone Bitart/Acetaminophen 1 tab 03/26/23 09:55 03/27/23 23:12 Hydrocodone/Acetaminophen (*Crx) 10-325 Mg Tablet PO 1 tab Q4H PRN Administration Pain Rated
--- NOTE | 2023-03-28 08:18 | PCPTNOTE ---
Addendum entered by Jenny Horta, PT 03/28/23 08:19: Continuing to wait for brace (as suggested by neurosurgeon) prior to PT evaluation. Will follow. RN aware. Original Note: Continuing to wait for brace (as suggested bprior to PT evaluation
--- NOTE | 2023-03-28 08:26 | PCOTNOTE ---
Continuing to wait for brace (as suggested by neurosurgeon) prior to OT evaluation. Will follow. RN aware.
[2023-03-28 08:31] LABS: Glucose Point of Care 125 mg/dl (65-105)
[2023-03-28] MEDS: FLUDROCORTISONE ACETATE 0.1 MG TABLET PO (08:53)
[2023-03-28] MEDS: predniSONE 5 MG TABLET 15 MG PO (08:53)
[2023-03-28] MEDS: ATORVASTATIN 20 MG TABLET PO (08:54)
[2023-03-28] MEDS: ESCITALOPRAM OXALATE 10 MG TABLET 40 MG PO (08:54)
[2023-03-28] MEDS: DULoxetine HCL 60 MG CAPSULE.DR PO (08:54)
[2023-03-28] MEDS: TOLNAFTATE 1% POWDER 45 GM BTL 1 APPLIC TOPICAL ×2 (08:54→20:23)
[2023-03-28] MEDS: CHOLECALCIFEROL 1,000 UNITS TABLET 2000 UNITS PO (08:54)
[2023-03-28] MEDS: OLMESARTAN MEDOXOMIL 20 MG TABLET PO (08:54)
--- NOTE | 2023-03-28 10:59 | PCNFU ---
Nutrition Follow-Up Complete: Moderate protein calorie malnutrition related to altered GI function as evidenced by weight loss 16%/6 months, mild muscle wasting. Goal: Adequate PO intake at least 75% meals Patient is meeting goal. No new goal. Pt current nutrition is DBCC. Last recorded weight is 74.4 kg, down from 75.4 kg on admit. Bowel Motility:+BM reported 03/28 Labs Reviewed:Glu 123, Na 131, Hct 29.0,Hgb 7.7 Meds Noted:Lipitor, Cymbalta Skin: WNL Additional Notes:Patient remains on a DBCC diet. She is tolerating diet, 50-100% of meals. Receiving Glucerna shakes BID for additional 220 kcals and 10 gms protein. Agree with diet orders. Monitoring diet advancement, meal intake, labs, weights, plan of care Follow up in 7 days to check intake
--- NOTE | 2023-03-28 11:43 | P.PNIM_ITS ---
Progress Note: A&P Assessment and Plan (1) Syncope: Code(s): R55 - Syncope and collapse Status: Acute Assessment and Plan: Patient felt lightheaded and dizzy prior to falling in the bathroom this morning with possible syncope versus near-syncope. * Monitor orthostatic vital signs Q shift. * Initiate fall precautions; ambulate with assistance. * Monitor on telemetry to rule out dysrhythmia. * Carotid Doppler negative * Suspect vasovagal syncope * Echo 03/26 reads, ?1. Complete two-dimensional, color flow and Doppler transthoracic echocardiogram is performed. ? 2. Left ventricular chamber dimension is mildly enlarged. ? 3. Left ventricular systolic function is normal, estimated at 55-60%. ? 4. There is mildly increased left ventricular wall thickness. ? 5. The left ventricular diastolic function is grade I diastolic dysfunction. ? 6. The basal inferior wall is akinetic. ? 7. The apical inferior wall, mid inferior wall, basal inferoseptal, and mid inferoseptal are hypokinetic. ? 8. Left atrial chamber dimension is mildly enlarged. ? 9. There is mild aortic valve regurgitation. ? 10. There is mild mitral valve regurgitation. ? 11. There is mild tricuspid valve regurgitation. ? 12. Moderate pulmonary hypertension, estimated pulmonary arterial systolic pressure is 46 mmHg. (2) Anemia: Code(s): D64.9 - Anemia, unspecified Status: Acute Assessment and Plan: She has not had labs at this facility for nearly 3 years however hemoglobin at that time was 12, currently 7.9. She was recently hospitalized at [facility] as per HPI and received 3 units packed red blood cells. * Check iron studies, B12, and folate. * FE 45, TIBC 160, saturation 28%, Ferritin 557 * vitamin b12 >1000, folate 6.6 * Check stool for occult blood. * Trend H&H and transfuse if indicated. (3) Electrolyte abnormality: Code(s): E87.8 - Other disorders of electrolyte and fluid balance, not elsewhere classified Status: Acute Assessment and Plan: Several mild electrolyte abnormalities including a sodium of 134, potassium 3.2, calcium 8.0, magnesium 1.5. * Electrolytes will be made replete. * Repeat BMP this evening to ensure improvement. * Hold hydrochlorothiazide for now. * Na 131 but stable. Add 1 gram NaCl daily. (4) Elevated LFTs: Code(s): R79.89 - Other specified abnormal findings of blood chemistry Status: Acute Assessment and Plan: Abdominal exam is largely benign. CT scan without findings to correlate. She is status post cholecystectomy. * Check hepatitis panel and monitor for now. * On atorvastatin 20 mg daily which will be continued however would hold if LFTs continued to trend upwards. (5) Compression fracture of T12 vertebra: Qualifiers: Encounter type: initial encounter Qualified Code(s): S22.080A - Wedge compression fracture of T11-T12 vertebra, initial encounter for closed fracture Code(s): S22.080A - Wedge compression fracture of T11-T12 vertebra, initial encounter for closed fracture Status: Acute Assessment and Plan: CT shows acute compression fracture of T12 with minimal anterior vertebral body height loss. * Supportive care. * TLSO brace ordered * MRI thoracic and lumbar spine pending * Analgesics available as needed. * PT/OT consulted * Neurosurgery consult and rec's appreciated. Listed as followed, * Non-operative management with brace. [facility] [place] has been contacted to fit her for a TLSO. Brace should be worn when sitt
--- NOTE | 2023-03-28 11:43 | PM.IMPN ---
Progress Note: A&P Assessment and Plan (1) Syncope: Code(s): R55 - Syncope and collapse Status: Acute Assessment and Plan: Patient felt lightheaded and dizzy prior to falling in the bathroom this morning with possible syncope versus near-syncope. Monitor orthostatic vital signs Q shift. Initiate fall precautions; ambulate with assistance. Monitor on telemetry to rule out dysrhythmia. Carotid Doppler negative Suspect vasovagal syncope Echo 03/26 reads, ?1. Complete two-dimensional, color flow and Doppler transthoracic echocardiogram is performed. ? 2. Left ventricular chamber dimension is mildly enlarged. ? 3. Left ventricular systolic function is normal, estimated at 55-60%. ? 4. There is mildly increased left ventricular wall thickness. ? 5. The left ventricular diastolic function is grade I diastolic dysfunction. ? 6. The basal inferior wall is akinetic. ? 7. The apical inferior wall, mid inferior wall, basal inferoseptal, and mid inferoseptal are hypokinetic. ? 8. Left atrial chamber dimension is mildly enlarged. ? 9. There is mild aortic valve regurgitation. ? 10. There is mild mitral valve regurgitation. ? 11. There is mild tricuspid valve regurgitation. ? 12. Moderate pulmonary hypertension, estimated pulmonary arterial systolic pressure is 46 mmHg. (2) Anemia: Code(s): D64.9 - Anemia, unspecified Status: Acute Assessment and Plan: She has not had labs at this facility for nearly 3 years however hemoglobin at that time was 12, currently 7.9. She was recently hospitalized at [facility] as per HPI and received 3 units packed red blood cells. Check iron studies, B12, and folate. FE 45, TIBC 160, saturation 28%, Ferritin 557 vitamin b12 >1000, folate 6.6 Check stool for occult blood. Trend H&H and transfuse if indicated. (3) Electrolyte abnormality: Code(s): E87.8 - Other disorders of electrolyte and fluid balance, not elsewhere classified Status: Acute Assessment and Plan: Several mild electrolyte abnormalities including a sodium of 134, potassium 3.2, calcium 8.0, magnesium 1.5. Electrolytes will be made replete. Repeat BMP this evening to ensure improvement. Hold hydrochlorothiazide for now. Na 131 but stable. Add 1 gram NaCl daily. (4) Elevated LFTs: Code(s): R79.89 - Other specified abnormal findings of blood chemistry Status: Acute Assessment and Plan: Abdominal exam is largely benign. CT scan without findings to correlate. She is status post cholecystectomy. Check hepatitis panel and monitor for now. On atorvastatin 20 mg daily which will be continued however would hold if LFTs continued to trend upwards. (5) Compression fracture of T12 vertebra: Qualifiers: Encounter type: initial encounter Qualified Code(s): S22.080A - Wedge compression fracture of T11-T12 vertebra, initial encounter for closed fracture Code(s): S22.080A - Wedge compression fracture of T11-T12 vertebra, initial encounter for closed fracture Status: Acute Assessment and Plan: CT shows acute compression fracture of T12 with minimal anterior vertebral body height loss. Supportive care. TLSO brace ordered MRI thoracic and lumbar spine pending Analgesics available as needed. PT/OT consulted Neurosurgery consult and rec's appreciated. Listed as followed, Non-operative management with brace. [facility] has been contacted to fit her for a TLSO. Brace should be worn when sitting > 30 degrees and when out of bed. Brace does not need to be worn when flat unless it is more comfortable. Follow up in neurosurgery clinic in 6 weeks with AP/lateral thoracolumbar X-rays prior to that appointment. PT/OT consulted and appreciate rec's for placement. Note today mentions SNF. (6) Abnormal computed tomography of abdomen and pelvis: Code(s): R93.5 - Abnormal findings on diagnostic shashi
[2023-03-28 12:17] LABS: Glucose Point of Care 119 mg/dl (65-105)
[2023-03-28] MEDS: SODIUM CHLORIDE 1 GM TABLET PO (12:51)
[2023-03-28 17:34] LABS: Glucose Point of Care 186 mg/dl (65-105)
[2023-03-28] MEDS: LATANOPROST 0.005% OP SOLN 2.5 ML BTL 1 DROP EACH EYE (17:47)
[2023-03-28] MEDS: HYDROcodone/acetaminophen (*CRX) 10-325 MG TABLET 1 TAB PO (20:21)
[2023-03-28 22:06] LABS: Glucose Point of Care 213 mg/dl (65-105)
[2023-03-28] MEDS: INSULIN ASPART (*BKC) 100 UNITS/ML SUB-Q (22:09)
[2023-03-29] VITALS (8 sets, daily range): BP systolic 106–133; BP diastolic 58–83; PULSE 80–120; RESP 16–18; TEMP 36.8–37; O2SAT 97–98
[2023-03-29 06:06] LABS: Alanine Aminotransferase 79 U/L (6-35); Albumin Level 2.6 g/dL (3.5-5.1); Alkaline Phosphatase 129 U/L (38-126); Anion Gap 5 mmol/L (8-16); Aspartate Amino Transferase 115 U/L (14-36); Bilirubin,Total 0.5 mg/dL (0.2-1.3); Blood Urea Nitrogen 17 mg/dL (7-17); Calcium 7.9 mg/dL (8.4-10.2); Carbon Dioxide 27 mmol/L (22-30); Chloride 102 mmol/L (98-107); Estimated CRCL calculation 49 ml/min; Estimated Glomerular Filt Rate > 60; Glucose 82 mg/dL (65-110); Magnesium 1.9 mg/dL (1.6-2.3); Potassium 3.6 mmol/L (3.4-5.0); Sodium 134 mmol/L (137-145)
[2023-03-29 06:10] LABS: Hematocrit 28.9 % (37.0-47.0); Hemoglobin 8.1 g/dL (12.0-15.0); Mean Corpuscular Hemoglobin 27.3 pg (26-34); Mean Corpuscular Volume 97.3 fl (80-100); Mean Platelet Volume 8.7 fl (7.4-10.4); Platelet Count Result 368 k/mm3 (150-375); Red Blood Count 2.97 M/mm3 (4.2-5.4); Red Cell Distribution Width 18.5 % (11.5-14.5); White Blood Count 6.3 K/mm3 (4.5-10.0)
[2023-03-29] MEDS: CYCLOBENZAPRINE HCL 5 MG TABLET PO (06:17)
[2023-03-29 07:21] LABS: Band Neutrophils Percent 30 % (0-6); Eosinophils Absolute Manual 0.06 K/mm3 (0.02-0.5); Eosinophils Percent Manual 1 % (0-4); Lymphocytes Absolute Manual 2.33 K/mm3 (1.1-4.5); Metamyelocytes Percent 3 %; Monocytes Absolute Manual 0.31 K/mm3 (0.1-0.90); Monocytes Percent Manual 5 % (3-9); Neutrophils Percent Manual 24 % (46-73); Platelet Estimate Adequate (Adequate); Schistocytes None Seen (NORMAL); Total Cells Counted 100
[2023-03-29 07:24] LABS: Anisocytosis 1+ (NORMAL); Burr Cells 1+ (NORMAL)
--- NOTE | 2023-03-29 08:18 | PM.PNCARD ---
Progress Note: A&P Assessment and Plan (1) Pre-syncope: Code(s): R55 - Syncope and collapse Status: Acute Assessment and Plan: Probably orthostatic or vasovagal related presyncope. 03/26/23 Echo: EF 55-60%, mild LVH, grade I diastolic dysfunction, basal inferior wall is akinetic and mid to apical inferior wall are hypokinetic; basal to mid inferoseptal almonte are hypokinetic; mild LAE, mild AI/AL/TR, RVSP 46 mmHg. She had negative nuclear stress test at [facility] this past summer, per patient. Advise to maintain hydration and to get up slowly to avoid passing out. Discuss results of echo that with negative nuclear stress test and segmental wall motion abnormality on echo but normal overall EF, no further cardiac workup is needed at this time. Due to persistent orthostasis, started Florinef 0.1 mg daily with improvement in orthostatics. Will sign off, please call with any questions. She may f/u with me in 2 weeks upon discharge. (2) Hypertension: Code(s): I10 - Essential (primary) hypertension Status: Acute Assessment and Plan: Stable. (3) Mixed hyperlipidemia: Code(s): E78.2 - Mixed hyperlipidemia Status: Chronic Assessment and Plan: On Atorvastatin. (4) Type 2 diabetes mellitus: Code(s): E11.9 - Type 2 diabetes mellitus without complications Status: Acute Assessment and Plan: Managed as per hospitalist. Subjective Date/time seen: 03/29/23 08:18 Interval history: Denies chest pain or sob. No dizziness while lying down. Exam Const: General: cooperative, healthy appearing and comfortable Orientation/consciousness: oriented to person, oriented to place and oriented to time Resp: Auscultation: clear to auscultation bilaterally, no crackles, no rales, no rhonchi and no wheezes Cardio: Rate: regular rate Rhythm: regular rhythm Heart sounds: no murmurs Peripheral pulses: dorsalis pedis present Neuro: General: oriented to person, oriented to place and oriented to time Extrem: Right lower extremity: no edema Left lower extremity: no edema Other: Mild edema of both legs Objective Data Vital Signs Vital Signs: Vital Signs - 24 hr 03/28/23 09:37 03/28/23 08:53 03/28/23 14:00 Temperature 97.8 F Pulse Rate 88 Respiratory Rate 16 Blood Pressure 139/52 L Pulse Oximetry 92 Oxygen Delivery Room Air Room Air 03/28/23 12:00 03/28/23 16:00 03/28/23 20:00 Temperature Pulse Rate 90 99 88 Respiratory Rate Blood Pressure Pulse Oximetry Oxygen Delivery 03/28/23 20:00 03/28/23 20:00 03/28/23 22:00 Temperature 97.8 F 98.4 F Pulse Rate 88 88 88 Respiratory Rate 16 16 16 Blood Pressure 139/52 L 129/56 L Pulse Oximetry 92 92 95 Oxygen Delivery Room Air 03/28/23 22:06 03/28/23 22:07 03/29/23 00:00 Temperature Pulse Rate 123 H 129 H 80 Respiratory Rate Blood Pressure 131/67 134/75 Pulse Oximetry Oxygen Delivery 03/29/23 04:00 03/29/23 05:10 Temperature 98.2 F Pulse Rate 82 98 Respiratory Rate 16 Blood Pressure 133/83 Pulse Oximetry 97 Oxygen Delivery Intake/Output Intake/Output: Intake & Output 03/26/23 03/27/23 03/28/23 03/29/23 23:59 23:59 23:59 23:59 Intake Total 2865 504 2603 Output Total 200 500 300 Balance 398 904 5257 Meds/Results Medications: Active Medications Generic Name Dose Route Start Last Admin Trade Name Freq PRN Reason Stop Dose Admin Acetaminophen 650 mg 03/25/23 20:43 Acetaminophen 325 Mg Tablet PO ONCE PRN pain or headache Hydrocodone Bitart/Acetaminophen 1 tab 03/25/23 20:43 Hydrocodone/Acetaminophen (*Crx) 5-325 Mg Tablet PO Q6H PRN PAIN RATED 4-6 Hydrocodone Bitart/Acetaminophen 1 tab 03/26/23 09:55 03/28/23 20:21 Hydrocodone/Acetaminophen (*Crx) 10-325 Mg Tablet PO 1 tab Q4H PRN Administration Pain Rated 7-10 Atorvastatin Calcium 20 mg 03/26/23 09:00 10
[2023-03-29 08:20] LABS: Glucose Point of Care 79 mg/dl (65-105)
[2023-03-29] MEDS: TOLNAFTATE 1% POWDER 45 GM BTL 1 APPLIC TOPICAL (08:45)
[2023-03-29] MEDS: ESCITALOPRAM OXALATE 10 MG TABLET 40 MG PO (08:45)
[2023-03-29] MEDS: predniSONE 5 MG TABLET 15 MG PO (08:45)
[2023-03-29] MEDS: DULoxetine HCL 60 MG CAPSULE.DR PO (08:45)
[2023-03-29] MEDS: FLUDROCORTISONE ACETATE 0.1 MG TABLET PO (08:45)
[2023-03-29] MEDS: CHOLECALCIFEROL 1,000 UNITS TABLET 2000 UNITS PO (08:45)
[2023-03-29] MEDS: SODIUM CHLORIDE 1 GM TABLET PO (08:45)
[2023-03-29] MEDS: OLMESARTAN MEDOXOMIL 20 MG TABLET PO (08:45)
[2023-03-29] MEDS: HYDROcodone/acetaminophen (*CRX) 10-325 MG TABLET 1 TAB PO (08:47)
--- NOTE | 2023-03-29 09:01 | P.DS_ITS ---
DS: Admitting Diagnosis Discharge Date 03/29 Admitting Diagnosis syncope DS: Discharge Diagnosis Discharge Diagnosis (1) Syncope: Code(s): R55 - Syncope and collapse Status: Acute Assessment and Plan: Patient felt lightheaded and dizzy prior to falling in the bathroom this morning with possible syncope versus near-syncope. * Monitor orthostatic vital signs Q shift. * Initiate fall precautions; ambulate with assistance. * Monitor on telemetry to rule out dysrhythmia. * Carotid Doppler negative * Suspect vasovagal syncope * Echo 03/26 reads, ?1. Complete two-dimensional, color flow and Doppler transthoracic echocardiogram is performed. ? 2. Left ventricular chamber dimension is mildly enlarged. ? 3. Left ventricular systolic function is normal, estimated at 55-60%. ? 4. There is mildly increased left ventricular wall thickness. ? 5. The left ventricular diastolic function is grade I diastolic dysfunction. ? 6. The basal inferior wall is akinetic. ? 7. The apical inferior wall, mid inferior wall, basal inferoseptal, and mid inferoseptal are hypokinetic. ? 8. Left atrial chamber dimension is mildly enlarged. ? 9. There is mild aortic valve regurgitation. ? 10. There is mild mitral valve regurgitation. ? 11. There is mild tricuspid valve regurgitation. ? 12. Moderate pulmonary hypertension, estimated pulmonary arterial systolic pressure is 46 mmHg. (2) Anemia: Code(s): D64.9 - Anemia, unspecified Status: Acute Assessment and Plan: She has not had labs at this facility for nearly 3 years however hemoglobin at that time was 12, currently 7.9. She was recently hospitalized at [facility] as per HPI and received 3 units packed red blood cells. * Check iron studies, B12, and folate. * FE 45, TIBC 160, saturation 28%, Ferritin 557 * vitamin b12 >1000, folate 6.6 * Check stool for occult blood. * Trend H&H and transfuse if indicated. (3) Electrolyte abnormality: Code(s): E87.8 - Other disorders of electrolyte and fluid balance, not elsewhere classified Status: Acute Assessment and Plan: Several mild electrolyte abnormalities including a sodium of 134, potassium 3.2, calcium 8.0, magnesium 1.5. * Electrolytes will be made replete. * Repeat BMP this evening to ensure improvement. * Hold hydrochlorothiazide for now. * Na 131 but stable. Add 1 gram NaCl daily. (4) Elevated LFTs: Code(s): R79.89 - Other specified abnormal findings of blood chemistry Status: Acute Assessment and Plan: Abdominal exam is largely benign. CT scan without findings to correlate. She is status post cholecystectomy. * Check hepatitis panel and monitor for now. * On atorvastatin 20 mg daily which will be continued however would hold if LFTs continued to trend upwards. (5) Compression fracture of T12 vertebra: Qualifiers: Encounter type: initial encounter Qualified Code(s): S22.080A - Wedge compression fracture of T11-T12 vertebra, initial encounter for closed fracture Code(s): S22.080A - Wedge compression fracture of T11-T12 vertebra, initial encounter for closed fracture Status: Acute Assessment and Plan: CT shows acute compression fracture of T12 with minimal anterior vertebral body height loss. * Supportive care. * TLSO brace ordered * MRI thoracic and lumbar spine pending * Analgesics available as needed. * PT/OT consulted * Neurosurgery consult and rec's appreciated. Listed as followed, * Non-operative manage
[2023-03-29 11:37] LABS: Glucose Point of Care 183 mg/dl (65-105)
[2023-03-29 13:53] LABS: SARS-CoV-2 RNA PCR Negative (Negative)
[2023-04-02 11:04] LABS: Haptoglobin 304
[2023-04-02 21:55] LABS: ANCA Screen ATYP P-ANCA POS (Negative); Myeloperoxidase Ab <1.0 AI (<1.0); Proteinase-3 Ab <1.0 AI (<1.0); S cerevisiae Ab (IgA) 7.1 U (<=20.0); S cerevisiae Ab (IgG) 4.3 U (<=20.0)
[2023-04-02 22:11] LABS: Atyp PANCA Ttr Reflex Chg Test YES
[2023-04-04 16:53] LABS: Calprotectin, Stool 2410 mcg/g
== END 2023-03-29 14:40 | DRG 552 ==
LOC: ANHED 12:05 → ANH3MED 12:26
PROVIDERS: Internal Medicine Gastroenterology; Physician Assistant; Admitting Provider Chiropractor; Emergency Provider Preventive Medicine Aerospace Medicine; PCP Internal Medicine; Visit Provider Nurse Practitioner Acute Care
DX: S22.080A Wedge compression fracture of T11-T12 vertebra, initial encounter for closed fracture (principal); K51.90 Ulcerative colitis, unspecified, without complications; W19.XXXA Unspecified fall, initial encounter; R55 Syncope and collapse; E86.0 Dehydration; D64.9 Anemia, unspecified; E11.9 Type 2 diabetes mellitus without complications; E78.2 Mixed hyperlipidemia; E87.6 Hypokalemia; E83.51 Hypocalcemia; F32.A Depression, unspecified; F41.1 Generalized anxiety disorder; H35.30 Unspecified macular degeneration; I10 Essential (primary) hypertension; M10.9 Gout, unspecified; Z11.52 Encounter for screening for COVID-19; Z79.84 Long term (current) use of oral hypoglycemic drugs; Z90.49 Acquired absence of other specified parts of digestive tract; Z90.710 Acquired absence of both cervix and uterus
CPT/HCPCS: 36415; 70450; 72125; 72128; 72132; 72146; 72148; 73610; 74177; 80048; 80053; 80074; 80076; 80307; 81001; 82274; 82607; 82728; 82746; 82948; 83010; 83036; 83540; 83550; 83605; 83615; 83735; 83993; 84145; 84443; 84484; 85014; 85018; 85025; 85610; 85730; 86036; 86140; 86671; 86850; 86900; 86901; 87040; 87045; 87269; 87272; 87427; 87449; 87635; 87636; 93005; 93306; 93880; 96361; 96365; 96375; 96376; 97110; 97161; 97165; 97166; 97530; 97535; 99285; A9270; G0378; J0612; J1756; J1815; J2270; J2405; J3475; J7030; J7040; J7512; Q9967

== ENCOUNTER 2023-04-10 19:53 | Emergency (ER) | payer MEDICARE, SELFPAY ==
[2023-04-10] VITALS (15 sets, daily range): BP systolic 92–116; BP diastolic 49–72; PULSE 84–94; RESP 18–44; TEMP 36.7; O2SAT 94–100
--- NOTE | ~2023-04-10 | CT_ITS ---
EXAMINATION: CT abdomen pelvis wo con DATE: 04/10/2023 20:41 INDICATION: back pain, recent compression fracture, TECHNIQUE: Computed tomography (CT) of the abdomen and pelvis was performed without intravenous contr ast. Automated exposure control and iterative reconstruction technique were employed. The dose-length product was 1071.87 mGy-cm. COMPARISON: 03/25/2023 and 01/20/2019. FINDINGS: Lower thorax: Coronary artery calcification. Bibasilar scar/atelectasis. Liver: Normal. Biliary/Gallbladder: Gallbladder is absent. No bile duct dilation. Pancreas: Mild fatty atrophy. Spleen: Granulomatous calcifications Adrenals:No mass. Kidneys: No suspicious mass, obstructing stone, or hydronephrosis. Punctate nonobstructing bilateral calculi. Subcentimeter right midpole hypodensity, likely proteinaceous or hemorrhagic cyst. GI tract: Short segment of mildly dilated small bowel just proximal to the inferior most small bowel containing ventral hernia. . Dilated transverse colon with wall thickening. Transition point at the s plenic flexure. Mild wall thickening and pericolonic inflammatory change involving the descending col on. Rectosigmoid anastomosis with a small blind ending rectal pouch. Mesentery/Peritoneum: Moderate volume free air in the nondependent abdomen and scattered within sever al areas of the mesentery. Retroperitoneum: No mass. Atherosclerotic abdominal aortic and/or arterial calcifications. Pelvis: Obscuration by streak artifact. Absent uterus. Empty urinary bladder. Soft Tissues: Small bowel containing small ventral abdominal wall hernias. Small fat-containing right inguinal hernia. Bones: No acute osseous finding. Incompletely visualized, uncomplicated appearing left hip arthropla sty. IMPRESSION: Transverse and descending colonic inflammatory changes likely on an infectious, inflammatory, or isch emic basis, with dilation of the transverse colon and the likely bowel perforation given the presence of moderate pneumoperitoneum. Small bowel containing ventral abdominal hernias, the inferior most of which is associated with mild proximal small bowel dilation indicating a component of obstruction. Reviewed, dictated and finalized at location K. IMPRESSION: Transverse and descending colonic inflammatory changes likely on an infectious, inflammatory, or ischemic basis, with dilation of the transverse colon and the likely bowel perforation given the presence of moderate pneumoperitoneum. Small bowel containing ventral abdominal hernias, the inferior most of which is associated with mild proximal small bowel dilation indicating a component of o bstruction.
--- NOTE | ~2023-04-10 | XR_ITS ---
EXAMINATION: XR chest 1V portable Exam Date/Time: 04/10/2023 20:35 CDT HISTORY: weakness Comparison: 03/31/2018; CT abdomen and pelvis 04/08/2023. RESULT: Lines, tubes, and devices: None. Lungs and pleura: Senescent change, scattered atelectasis and scar, otherwise clear. Cardiomediastinal silhouette: Stable. Other: No acute osseous or upper abdominal finding. No pneumoperitoneum seen in the concurrent CT is not well seen radiographically. IMPRESSION: No acute cardiopulmonary process. Reviewed, dictated and finalized at location K.
--- NOTE | ~2023-04-10 | CT_ITS ---
EXAMINATION: CT brain wo con DATE: 04/10/2023 20:42 INDICATION: altered mental status . TECHNIQUE: Computed tomography (CT) of the head was performed without intravenous contrast. The mA wa s adjusted according to patient size. Iterative reconstruction technique was employed. The dose-lengt h product was 681.00 mGy-cm. COMPARISON: 03/25/2023. FINDINGS: No acute intracranial hemorrhage or extra-axial fluid collection. No hydrocephalus, mass, or herniation. No acute ischemic infarct. Unremarkable dural venous sinus attenuation. No acute osseous abnormality. Trace left mastoid fluid, mucosal thickening in the maxillary and sphenoid sinuses, aerated secretion s in the left maxillary sinus, small air-fluid levels in the sphenoid sinuses, the remaining the zachary ining aerated spaces are clear. Mild atrophy and chronic white matter change. Atherosclerotic intracranial calcification. Basal gangl ia calcification. Bilateral lens replacements. IMPRESSION: No acute intracranial process. CT findings may represent acute maxillary/sphenoid sinusitis in the appropriate clinical context. Reviewed, dictated and finalized at location K.
--- NOTE | 2023-04-10 20:10 | ED.GENADULT ---
HPI - General Adult General Chief complaint: Unspecified Stated complaint: pain, ams Time Seen by Provider: 04/10/23 20:06 History of Present Illness HPI narrative: Patient 77-year-old female presents to the emergency department with chief complaint of altered mental status and back pain. Patient was recently in the hospital after having a compression fracture of T12 patient reports that she has been having pain in her back the nursing facility noticed that she was a little more confused today and also noticed that her oxygen levels were somewhat lower at the facility. When EMS arrived the patient had normal oxygen saturations but was breathing fast but was saying it was secondary to pain. Patient reports no new trauma reports no fever denies nausea or vomiting does report that she feels dry Related Data Home Medications Medication Instructions Recorded Confirmed latanoprost 0.005 % eye drops 1 drop ophthalmic (eye) QPM 08/15/19 03/31/23 acetaminophen 325 mg tablet 650 mg PO ONCE PRN pain or headache 03/25/23 03/31/23 atorvastatin 20 mg tablet 20 mg PO DAILY 03/25/23 03/31/23 carteolol 1 % eye drops 1 drp DAILY 03/25/23 03/31/23 cholecalciferol (vitamin D3) 50 50 mcg PO DAILY 03/25/23 03/31/23 mcg (2,000 unit) tablet dicyclomine 20 mg tablet 20 mg PO BID 03/25/23 03/31/23 duloxetine 60 mg capsule,delayed 60 mg PO DAILY 03/25/23 03/31/23 release sprinkle ergocalciferol (vitamin D2) 1,250 1,250 mcg PO WEEKLY 03/25/23 03/31/23 mcg (50,000 unit) capsule hydrocodone 5 mg-acetaminophen 325 1 tablet PO Q6H PRN Pain 03/25/23 03/31/23 mg tablet metformin 500 mg tablet,extended 500 mg PO DAILY 03/25/23 03/31/23 release 24 hr ondansetron 4 mg disintegrating 4 mg PO Q8H PRN Nausea And Vomiting 03/25/23 03/31/23 tablet Allergies Allergy/AdvReac Type Severity Reaction Status Date / Time amoxicillin Allergy Unknown Rash Verified 08/27/20 13:31 minocycline Allergy Unknown unknown Verified 08/27/20 13:31 Review of Systems Review of Systems: A 10 system review of systems was completed on the patient and is negative except for what is stated in the HPI. Nursing and ancillary documentation was reviewed. [facility] Past Medical History Medical History Gastroparesis Generalized anxiety disorder Gout Hypertension Macular degeneration Mixed hyperlipidemia Type 2 diabetes mellitus Surgical History Surgical History History of cholecystectomy History of hysterectomy History of lumbar laminectomy Family History Family History Other Acute myocardial infarction Breast cancer Depression Hypertension Social History Social History Social History: Surrogate medical decision maker: Da Segundo, spouse. Code status: Full code. Smoking status: Never smoker Second hand tobacco smoke exposure: No Alcohol intake: never Substance use: never Lack of Transportation: No Lack of Food: Never True Current Housing: I Have Housing Concerned About Future Housing: No Difficulty Paying Gas/Electric Bills: No Difficulty Paying for Meds: No Currently Unemployed: No Education: High School Diploma/GED Difficulty w/ Childcare or Family Care: No Spiritual care concerns: No Exam Narrative: GENERAL: Well-appearing, well-nourished, and in no acute distress. HEAD: Normocephalic, atraumatic. EYES: PERRLA and EOMI. ENT: Nares clear, no rhinorrhea or epistaxis. Mucous membranes dry. NECK: Supple. CHEST: Clear to auscultation. No respiratory distress. HEART: Regular rate and rhythm. No murmur heard. Normal peripheral pulses. ABDOMEN: Soft, nontender, nondistended, normal active bowel sounds. EXTREMITIES: Normal range of motion. No edema. SKIN: Warm, d
--- NOTE | 2023-04-10 20:11 | ECG_ITS ---
Measurements Intervals Hale Rate: 87 P: 78 NV: 139 QRS: -35 QRSD: 92 T: 75 QT: 368 QTc: 443 Interpretive Statements SINUS RHYTHM MARKED LEFT AXIS DEVIATION [QRS AXIS < -30] LOW QRS VOLTAGE IN PRECORDIAL LEADS [QRS DEFLECTION < 1.0 mV IN CHEST LEADS] NONSPECIFIC T-WAVE ABNORMALITY ABNORMAL ECG COMPARED TO ECG 03/25/2023 09:00:22 T-WAVE ABNORMALITY NOW PRESENT Electronically Signed On 04-11-2023 7:06:18 CDT by Augustus Dubois M.D.
[2023-04-10 20:24] LABS: Hematocrit 32.7 % (37.0-47.0); Hemoglobin 9.5 g/dL (12.0-15.0); Mean Corpuscular HGB Conc 29.1 g/dl (32-36); Mean Corpuscular Hemoglobin 27.6 pg (26-34); Mean Corpuscular Volume 95.1 fl (80-100); Mean Platelet Volume 9.3 fl (7.4-10.4); Platelet Count Result 296 k/mm3 (150-375); Red Blood Count 3.44 M/mm3 (4.2-5.4); Red Cell Distribution Width 18.5 % (11.5-14.5); White Blood Count 9.2 K/mm3 (4.5-10.0)
[2023-04-10] MEDS: SODIUM CHLORIDE 0.9% IV 1,000 ML 999 ML IV CONT ×3 (20:25→21:06)
--- NOTE | 2023-04-10 20:31 | PC.NURSE ---
Patient taken to imaging at this time.
[2023-04-10 20:32] LABS: Appearance Urine Clear (Clear); Bacteria Urine None Seen /hpf; Bilirubin Urine Negative (Negative); Blood Urine Negative (Negative); Color Urine Dark Yellow (Yellow); Glucose Urine UA Negative (Negative); Ketones Urine Trace mg/dL (Negative); Leukocyte Esterase Ur 2+ LEU/UL (Negative); Need Manual Microscopic Reviewed; Nitrate Urine Positive (Negative); Protein Urine 1+ mg/dL (Negative); RBC Urine 0-2 /hpf (0-2); Specific Grav Ur 1.024 (1.001-1.035); Squamous Epithelial Cell Urine Occasional /hpf (Few); pH Urine 5.5 (5.0-9.0)
[2023-04-10 20:34] LABS: Alanine Aminotransferase 33 U/L (6-35); Albumin Level 2.6 g/dL (3.5-5.1); Alkaline Phosphatase 140 U/L (38-126); Anion Gap 13 mmol/L (8-16); Aspartate Amino Transferase 40 U/L (14-36); Bilirubin,Total 0.6 mg/dL (0.2-1.3); Blood Urea Nitrogen 52 mg/dL (7-17); Calcium 7.8 mg/dL (8.4-10.2); Carbon Dioxide 19 mmol/L (22-30); Chloride 105 mmol/L (98-107); Estimated Glomerular Filt Rate 31; Glucose 105 mg/dL (65-110); INR 1.2; Lipase 11 U/L (23-300); Magnesium 1.5 mg/dL (1.6-2.3); Prothrombin Time 15.6 Seconds (11.1-14.7); Sodium 137 mmol/L (137-145)
[2023-04-10 20:34] LABS: Add Urine Microscopic? YES
[2023-04-10 20:35] LABS: Partial Thromboplastin Time 26.4 SECONDS (22.3-36.8)
[2023-04-10 20:42] LABS: Lactic Acid Reflex 5.6 mmol/L (0.7-2.0)
[2023-04-10 20:45] LABS: Band Neutrophils Percent 6 % (0-6); Lymphocytes Absolute Manual 3.86 K/mm3 (1.1-4.5); Lymphocytes Percent Manual 42 % (18-44); Monocytes Absolute Manual 0.27 K/mm3 (0.1-0.90); Monocytes Percent Manual 3 % (3-9); Neutrophils Absolute Manual 5.06 K/mm3 (1.7-7.2); Neutrophils Percent Manual 49 % (46-73); Platelet Estimate Adequate (Adequate); Total Cells Counted 100
[2023-04-10 20:46] LABS: Hypochromasia 1+ (NORMAL); Ovalocytes 1+ (NORMAL); Schistocytes None Seen (NORMAL)
[2023-04-10 20:48] LABS: NT Pro B Type Natriuretic Pept 6650 pg/mL (19.9-100); Troponin I 0.037 ng/mL (0.000-0.034)
[2023-04-10 20:50] LABS: Procalcitonin 0.6 ng/mL
[2023-04-10 20:55] LABS: Alveolar/Arterial O2 Gradient 53.3 mmHg; Base Excess ABG -3.4 mEq/l (+/-2.0); Fractional Inspired Oxygen 21 %; HCO3 ABG 15.1 mEq/l (22.0-26.0); Oxygen Content ABG 12.8 %vol (16.0-22.0); Oxyhemoglobin 94.7 % THb (90.0-100.0); PO2 ABG 80.5 mmHg (80.0-100.0); PO2 FiO2 Ratio Arterial Blood 3.83 %; Total Hemoglobin 9.5 g/dL (12.0-18.0)
[2023-04-10 20:57] LABS: pH ABG 7.673 (7.350-7.450)
[2023-04-10 20:58] LABS: Device ROOM AIR; PCO2 ABG 13.3 mmHg (35.0-45.0); Site Drawn RIGHT BRACHIAL
[2023-04-10 21:00] LABS: Influenza A QL RT-PCR Negative (Negative); Influenza B QL RT-PCR Negative (Negative); SARS-CoV-2 RNA PCR Negative (Negative)
[2023-04-10] MEDS: ASPIRIN 81 MG CHEWABLE TABLET 324 MG PO (21:01)
[2023-04-10] MEDS: MORPHINE SULFATE (*CRX) 4 MG/ML INJ 2 MG IV PUSH (21:01)
[2023-04-10] MEDS: MAGNESIUM SULF 2 GM/WATER 50ML 2 GM/50 ML BAG IVPB (21:03)
--- NOTE | 2023-04-10 21:07 | PC.NURSE ---
Phlebotomy here to draw cultures.
[2023-04-10] MEDS: MORPHINE SULFATE (*CRX) 4 MG/ML INJ IV PUSH (21:55)
[2023-04-10] MEDS: metroNIDAZOLE 500 MG/ISO 100ML 500 MG/100 ML BAG 100 MG IVPB (22:24)
[2023-04-10] MEDS: CEFEPIME 2 GM/NS 50 ML 2 GM/50 ML BAG IVPB (22:50)
[2023-04-10 23:21] LABS: Reflex Lactic Acid Yes or No Add Lactic
[2023-04-10 23:22] LABS: Troponin I 0.028 ng/mL (0.000-0.034)
== END 2023-04-10 23:29 | disposition short-term general hospital (02) ==
PROVIDERS: Emergency Provider Emergency Medicine; PCP Internal Medicine
DX: N39.0 Urinary tract infection, site not specified (principal); K63.1 Perforation of intestine (nontraumatic); E87.20 Acidosis, unspecified; E78.2 Mixed hyperlipidemia; E83.42 Hypomagnesemia; E11.43 Type 2 diabetes mellitus with diabetic autonomic (poly)neuropathy; K31.84 Gastroparesis; Z20.822 Contact with and (suspected) exposure to COVID-19; M10.9 Gout, unspecified; Z90.49 Acquired absence of other specified parts of digestive tract; Z90.710 Acquired absence of both cervix and uterus; Z79.84 Long term (current) use of oral hypoglycemic drugs; R94.31 Abnormal electrocardiogram [ECG] [EKG]; K43.6 Other and unspecified ventral hernia with obstruction, without gangrene; R93.0 Abnormal findings on diagnostic imaging of skull and head, not elsewhere classified
CPT/HCPCS: 36415; 36600; 70450; 71045; 74176; 80053; 81001; 82805; 83605; 83690; 83735; 83880; 84145; 84484; 85025; 85610; 85730; 87040; 87086; 87147; 87181; 87186; 87636; 93005; 96361; 96365; 96367; 96368; 96375; 96376; 99285; A9270; J0692; J0696; J1836; J2270; J3370; J3475; J7030